=== PATIENT | female | born 1935 | race Caucasian/White ===

== ENCOUNTER 2020-01-08 09:30 | Inpatient (IN) | payer MEDICARE, OTHER, SELFPAY ==
[2020-01-08] VITALS (22 sets, daily range): BP systolic 81–121; BP diastolic 35–69; PULSE 53–86; RESP 14–24; TEMP 36–36.6; O2SAT 77–100; BMI 27.9
--- NOTE | ~2020-01-08 | CT_ITS ---
EXAMINATION: CT abdomen pelvis w con INDICATION: Abdominal pain and diarrhea TECHNIQUE: Computed tomographic images of the abdomen and pelvis were obtained after the administrati on of 100 cc of Omnipaque 350 intravenous contrast. The dose-length product (DLP) was 1092.48 mGy-cm. Automated exposure control and iterative reconstruction technique were employed. COMPARISON: None available FINDINGS: Minimal dependent atelectasis is present in the lung bases. The heart size is normal. There is a large sliding hiatal hernia. The gallbladder is distended and contains multiple stones. The neptali er, spleen, pancreas, and adrenal glands are normal. Cysts of the kidneys measure up to 4 mm on the r ight. There is calcified atherosclerosis of the aorta and many of the other arteries. No pathological ly enlarged abdominal or pelvic lymph nodes are identified. There is no free intraperitoneal gas or e vidence of bowel obstruction. There is liquid stool throughout much of the colon. There are few focal areas of colonic wall thickening. There is wall thickening of the urinary bladder. There is a small hernia of the right lower quadrant containing a short segment of nonobstructed small bowel. Fat conta ining umbilical and left inguinal hernias are noted. There is severe lumbar spondylosis at L5-S1. IMPRESSION: 1. Areas of wall thickening in the colon and liquid stool, suggestive of colitis and diarrhea. 2. Cholelithiasis and gallbladder distention without definite wall thickening or pericholecystic flui d. Correlate for right upper quadrant tenderness. 2. Wall thickening of the urinary bladder, likely cystitis. Reviewed, dictated and finalized at location A. IMPRESSION: 1. Areas of wall thickening in the colon and liquid stool, suggestive of coliti s and diarrhea. 2. Cholelithiasis and gallbladder distention without definite wall thickening o r pericholecystic fluid. Correlate for right upper quadrant tenderness. 2. Wall thickening of the urinary bladder, likely cystitis.
--- NOTE | ~2020-01-08 | XR_ITS ---
XR chest 1V portable 01/09/2020 19:36 Indication: Possible aspiration Procedure: AP portable chest Comparison: 04/27/2018 Findings: Cardiomegaly. No focal air space disease, pulmonary edema, pleural effusion or suspected pn eumothorax. Large hiatal hernia. Impression: 1: No acute cardiopulmonary disease. 2: Large hiatal hernia. Reviewed, dictated and finalized at location A. UCT MANAGEMENT CONSULTANT Impression: 1: No acute cardiopulmonary disease. 2: Large hiatal hernia.
[2020-01-08] MEDS: SODIUM CHLORIDE 0.9% IV 1,000 ML 999 ML IV CONT (09:55)
--- NOTE | 2020-01-08 10:16 | ED.GENADULT ---
HPI - General Adult General Chief complaint: Nausea/Vomiting/Diarrhea Stated complaint: diarrhea for 4 days, blood in stool Time Seen by Provider: 01/08/20 09:35 Source: patient and family History of Present Illness HPI narrative: Patient is 84 y/o female complaining of diarrhea and bloody stool for last 4 days. Her son states that patient has history of stroke and some difficulty with talking at baseline. He states that she has been having 2-3 episode of diarrhea per day. There is no alleviating or exacerbating factor. She also complains of mild abdominal pain. Her son states that she is DNR. Related Data Home Medications Medication Instructions Recorded Confirmed dabigatran etexilate [Pradaxa] mg PO 01/08/20 levetiracetam PO 01/08/20 metoprolol tartrate 01/08/20 olanzapine mg 01/08/20 olanzapine mg 01/08/20 pantoprazole PO 01/08/20 potassium chloride [K-Tab] meq PO 01/08/20 raloxifene mg 01/08/20 sertraline mg 01/08/20 simvastatin mg 01/08/20 Allergies Allergy/AdvReac Type Severity Reaction Status Date / Time Sulfa (Sulfonamide Allergy Unknown Nausea and Verified 01/08/20 11:16 Antibiotics) Vomiting Review of Systems Constitutional: Constitutional: Denies chills, Denies fever(s), Denies headache(s) and Denies weakness Eyes: Eyes: Denies blurry vision ENT: Denies headache(s) and Denies neck pain Cardiovascular: Cardiovascular: Denies chest pain and Denies dyspnea Respiratory: Respiratory: Denies cough and Denies dyspnea Gastrointestinal: Gastrointestinal: Reports abdominal pain, Reports hematochezia, Reports diarrhea, Denies nausea and Denies vomiting Genitourinary: Genitourinary: Denies hematuria and Denies dysuria Musculoskeletal: Musculoskeletal: Denies back pain and Denies neck pain Neurologic: Denies headache(s) and Denies weakness Exam Const: General: no acute distress and well developed Orientation/consciousness: oriented to person, oriented to place, oriented to time and patient oriented x3 HENMT: Head: normocephalic Ears: external ears normal General nose exam: Normal external nose present Eyes: General: appearance normal, both eyes and all related structures Conjunctivae: conjunctivae normal Neck: Neck: normal visual inspection and full ROM Chest: Chest palpation & inspection: normal inspection of the chest and no tenderness Resp: Effort & Inspection: normal respiratory effort Auscultation: clear to auscultation bilaterally Cardio: Rate: regular rate Rhythm: regular rhythm GI: GI Palp: No abdominal tenderness and Yes Soft to palpation Rectal Exam: Abnormal stool present zeb blood and External hemorrhoid(s) present Skin: General skin exam: normal color and turgor normal Neuro: General: oriented to person Cognition (Neuro): abnormal cognition Motor exam (neuro): Other motor observations present (left hemiparesis) Extrem: General: normal to inspection and no pedal edema Other: left arm contracted Psych: Appearance: grossly normal Mental Status: mental status grossly normal Affect: normal affect Course Consultations Consultation #1: Discussed with Dr. Zelaya, who agrees to admit. Date: 01/08/20 Time: 10:50 Consultation #2: Discussed with Dr. Danielson, who agrees to consult. Date: 01/08/20 Time: 11:53 Vital Signs Vital signs: Vital Signs Temperature 36.6 C 01/08/20 09:40 Pulse Rate 64 01/08/20 09:40 Respiratory Rate 16 01/08/20 09:40 Blood Pressure 88/45 L 01/08/20 09:40 Pulse Oximetry 93 01/08/20 09:40 Temperature 36.6 C 01/08/20 09:40 Pulse Rate 64 01/08/20 09:40 Respiratory Rate 16 01/08/20 09:40 Blood Pressure 88/45 L 01/08/20 09:40 Pulse Oximetry 93 01/08/20 09:40 Medical Decision Making Vital Signs Vital Signs: Vital Signs Temperature 36.6 C 01/08/20 09:40 Pulse Rate 64 01/08/20 09:40 Respiratory Rate 16 01/08/20 09:40 Blood Pressure 88/45 L 01/08/20 09:40 Pulse Oximetry 93 01/08/20 09:40
[2020-01-08 10:39] LABS: Basophils Percent Auto 0.5 % (0.2-1.2); Eosinophils Absolute Auto 0.1 K/mm3 (0-0.3); Eosinophils Percent Auto 1.2 % (0-4.4); Immature Granulocyte Absolute 0.02 K/mm3 (0.00-0.031); Immature Granulocyte Percent A 0.5 % (0-0.5); Immature Platelet Fraction Pct 6.5 % (0.9-11.2); Lymphocytes Percent Auto 26.8 % (18.3-44.2); Mean Corpuscular HGB Conc 24.3 g/dl (32-36); Mean Corpuscular Volume 69.9 fl (80-100); Mean Platelet Volume 11.3 fl (7.4-10.4); Monocytes Absolute Auto 0.8 K/mm3 (0.1-0.6); Neutrophils Absolute Auto 2.1 K/mm3 (1.3-6.7); Platelet Count Result 197 k/mm3 (150-375); Red Blood Count 2.89 M/mm3 (4.2-5.4); Red Cell Distribution Width 20.2 % (11.5-14.5); White Blood Count 4.1 K/mm3 (4.5-10.0)
[2020-01-08 10:41] LABS: Hemoglobin 4.9 g/dL (12.0-15.0)
[2020-01-08 10:42] LABS: Hematocrit 20.2 % (37.0-47.0)
[2020-01-08 10:47] LABS: INR 4.2; Prothrombin Time 39.8 Seconds (11.1-14.7)
[2020-01-08 10:48] LABS: Partial Thromboplastin Time 67.8 SECONDS (22.3-36.8)
[2020-01-08 10:50] LABS: Alanine Aminotransferase 10 U/L (4-35); Albumin Level 2.8 g/dL (3.5-5.1); Alkaline Phosphatase 58 U/L (38-126); Anion Gap 5 mmol/L (8-16); Aspartate Amino Transferase 25 U/L (14-36); Bilirubin,Total 0.3 mg/dL (0.2-1.3); Blood Urea Nitrogen 21 mg/dL (7-17); Calcium 7.9 mg/dL (8.4-10.2); Carbon Dioxide 23 mmol/L (22-30); Chloride 114 mmol/L (98-107); Estimated Glomerular Filt Rate 39; Glucose 100 mg/dL (65-105); Potassium 4.1 mmol/L (3.4-5.0); Sodium 142 mmol/L (137-145)
--- NOTE | 2020-01-08 12:46 | PC.NURSE ---
Patient's son reports difficulty swallowing pills.
[2020-01-08] MEDS: CIPROFLOXACIN 400 MG/D5W 200ML 200 ML 200 MG IVPB (12:53)
--- NOTE | 2020-01-08 13:56 | ADMGEN ---
This patient, Rosy Gregorio, was admitted to IMU Room 203-01 at 1350 on01/08/2020. Patient/family oriented to hospital policies and general routines including ID bracelet, bed and alarms, visiting hours, pain management, procedures, bathroom and other care routines, personal items, smoking policy, room service/diet, and visiting hours. Information on how to activate the Rapid Response Team has been discussed. Patient/Family are encouraged to report perceived risks to care and to ask questions if they do not understand what they are told or what they should do.
--- NOTE | 2020-01-08 14:20 | ADMGEN ---
This patient, Rosy Gregorio, was admitted to IMU Room 203-01. Patient/family oriented to hospital policies and general routines including ID bracelet, bed and alarms, visiting hours, pain management, procedures, bathroom and other care routines, personal items, smoking policy, room service/diet, and visiting hours. Information on how to activate the Rapid Response Team has been discussed. Patient/Family are encouraged to report perceived risks to care and to ask questions if they do not understand what they are told or what they should do.
[2020-01-08] MEDS: SODIUM CHLORIDE 0.9% IV 250 ML 30 ML IV CONT (15:28)
[2020-01-08] MEDS: TUBING, BLOOD PLUM PUMP TUBING 1 EACH XX (15:28)
[2020-01-08] MEDS: METOPROLOL TARTRATE INJ 5 MG/5 ML VIAL IV PUSH (18:10)
--- NOTE | 2020-01-08 18:45 | PM.IMHP ---
H&P: HPI History of Present Illness Date/Time: 01/08/20 18:45 Chief complaint: GI Bleed, Acute blood loss anemia Narrative: Rosy Gregorio is a an 84-year-old female with paroxysmal atrial fibrillation long-term anticoagulation, GERD, chronic anemia, chronic kidney disease, seizure disorder, and history of stroke who presented to the emergency department earlier today with reports of diarrhea and blood in stools. 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 For the past 4 days she has had bloody diarrhea, 2 to 3 episodes per day, which her son has attributed to hemorrhoids. Today she began complaining of some mild discomfort in the left lower quadrant. On arrival to the emergency department she was profoundly anemic with a hemoglobin and hematocrit of 4.9 and 20.2% respectively. She continues to have mild, vague abdominal discomfort but has no other complaints at the time my evaluation. She specifically denies fever, chills, sweats, chest pain, shortness of breath, nausea, and vomiting. Review of Systems Review of Systems: Narrative: A review of systems was attempted but very limited given the patient's the underlying aphasia, and she may very well have underlying dementia as well. Except as documented in HPI she stated no to every question asked. 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 Chronic anemia Chronic kidney disease, stage 3 Baseline creatinine is around 1.10. Diastolic dysfunction Echocardiogram in November 2016 showed normal left ventricular size and function with mild concentric LVH and a measured ejection fraction at 60% as well as diastolic dysfunction, severe left atrial enlargement, very large aneurysmal atrial septum with evidence of PFO, and [id number] tricuspid regurgitation. Gastroesophageal reflux disease Hyperlipidemia prison current use of anticoagulant Paroxysmal atrial fibrillation Patent foramen ovale with atrial septal aneurysm On echocardiogram in November 2016. Seizure disorder Urinary incontinence Surgical History Surgical History (Updated 01/08/20 @ 14:34 by Ling Steward PA-C) History of cataract extraction History of mastectomy For treatment of breast cancer. History of skin graft To left upper extremity. History of tonsillectomy Family History Family History Father Acute myocardial infarction Mother Chronic obstructive pulmonary disease Social History Social History (Updated 01/08/20 @ 20:25 by Ling Steward PA-C) Social History: The patient lives in [place] with her son, Renato. 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 She is a lifelong nonsmoker and denies alcohol and illicit substance abuse. Her son is her healthcare power of united [place] attorney and she is listed as a DNR. Spiritual care concerns: No Meds Home Medications and Allergies Home Medications Medication Instructions Recorded Confirmed Type dabigatran etexilate [Pradaxa] 150 mg PO BID 01/08/20 01/08/20 History levetiracetam 500 mg PO BID 01/08/20 01/08/20 History metoprolol tartrate 25 mg PO QID 01/08/20 01/08/20 History olanzapine 5 mg PO DAILY 01/08/20 01/08/20 History pantoprazole 40 mg PO DAILY 01/08/20 01/08/20 History potassium chloride [K-Tab] 10 meq PO DAILY 01/08/20 01/08/20 History raloxifene 60 mg PO DAILY 01/08/20 01/08/20 History sertraline 50 mg PO DAILY 01/08/20 01/08/20 History simvastatin 10 mg PO DAILY 01/08/20 01/08/20 History Allergies Allergy/AdvReac Type Severity Reaction Status Date / Time Sulfa (Sulfonamide Allergy Unknown Nausea and Verified 01/08/20 11:16 Antibiotics) Vomiting Vital Signs Vital Signs - 24
[2020-01-08] MEDS: metroNIDAZOLE 500 MG/ISO 100ML 500 MG/100 ML BAG 100 MG IVPB (19:02)
[2020-01-08] MEDS: PANTOPRAZOLE SODIUM IV 40 MG VIAL IV PUSH (21:05)
[2020-01-08] MEDS: levETIRAcetam 500MG/NACL 100ML 500 MG/100 ML BAG 400 MG IVPB (21:06)
[2020-01-09] VITALS (22 sets, daily range): BP systolic 111–140; BP diastolic 40–66; PULSE 50–84; RESP 16–18; TEMP 36.1–37.3; O2SAT 95–100
[2020-01-09] MEDS: METOPROLOL TARTRATE INJ 5 MG/5 ML VIAL IV PUSH ×4 (01:44→18:53)
[2020-01-09 02:48] LABS: Basophils Percent Auto 0.4 % (0.2-1.2); Eosinophils Absolute Auto 0.1 K/mm3 (0-0.3); Eosinophils Percent Auto 1.8 % (0-4.4); Hematocrit 27.9 % (37.0-47.0); Hemoglobin 8.4 g/dL (12.0-15.0); Immature Granulocyte Absolute 0.09 K/mm3 (0.00-0.031); Immature Granulocyte Percent A 1.6 % (0-0.5); Immature Platelet Fraction Pct 4.1 % (0.9-11.2); Lymphocytes Absolute Auto 1.43 K/mm3 (0.9-3.2); Lymphocytes Percent Auto 25.4 % (18.3-44.2); Mean Corpuscular HGB Conc 30.1 g/dl (32-36); Mean Corpuscular Hemoglobin 23.6 pg (26-34); Mean Corpuscular Volume 78.4 fl (80-100); Mean Platelet Volume 10.8 fl (7.4-10.4); Monocytes Absolute Auto 0.9 K/mm3 (0.1-0.6); Monocytes Percent Auto 15.5 % (2.6-8.5); Neutrophils Absolute Auto 3.1 K/mm3 (1.3-6.7); Neutrophils Percent Auto 55.3 % (45.5-73.1); Platelet Count Result 203 k/mm3 (150-375); Red Blood Count 3.56 M/mm3 (4.2-5.4); Red Cell Distribution Width 25.9 % (11.5-14.5); White Blood Count 5.6 K/mm3 (4.5-10.0)
[2020-01-09 02:59] LABS: Alanine Aminotransferase 10 U/L (4-35); Alkaline Phosphatase 62 U/L (38-126); Anion Gap 7 mmol/L (8-16); Aspartate Amino Transferase 25 U/L (14-36); Bilirubin,Total 0.5 mg/dL (0.2-1.3); Blood Urea Nitrogen 16 mg/dL (7-17); Carbon Dioxide 21 mmol/L (22-30); Chloride 117 mmol/L (98-107); Estimated CRCL calculation 28 ml/min; Estimated Glomerular Filt Rate 39; Glucose 78 mg/dL (65-105); Magnesium 2.1 mg/dL (1.6-2.3); Potassium 3.9 mmol/L (3.4-5.0); Sodium 145 mmol/L (137-145)
--- NOTE | 2020-01-09 02:59 | PC.NURSE ---
Daylight Savings Time For Daylight Savings Time Ending in the Fall - Clocks are moved back. For Daylight Savings Time Beginning in the Spring - Clocks are moved ahead. For [facility], the time of change occurs at 0200 hrs. Time is taken from the banquet server on call. This entry on the patient's chart recognizes the change in time reflected during documentation. Example: 2 entries for vital signs may be charted for 0200 hrs.
[2020-01-09 08:38] LABS: Hematocrit 28.7 % (37.0-47.0); Hemoglobin 8.5 g/dL (12.0-15.0)
[2020-01-09 08:49] LABS: INR 2.3; Prothrombin Time 24.9 Seconds (11.1-14.7)
--- NOTE | 2020-01-09 09:45 | WPDGICN ---
Assessment and Plan Assessment and plan (1) GI bleed: Code(s): K92.2 - Gastrointestinal hemorrhage, unspecified Status: Acute Assessment and Plan: Patient has GI bleeding manifested by black stools today. Bright red blood noted in the emergency room. Large hemorrhoids potentially contribute to some of this but difficult to account for all of bleeding. GI endoscopy and buys. Pradaxa anticoagulation will be held in anticipation of further investigation. (2) Chronic anemia: Code(s): D64.9 - Anemia, unspecified Status: Inactive Assessment and Plan: Patient has chronic ani me a now with a slight decline which may be related GI blood loss will continue to monitor hemoglobin transfuse if necessary. (3) Cerebrovascular accident: Code(s): I63.9 - Cerebral infarction, unspecified Status: Inactive (4) Paroxysmal atrial fibrillation: Code(s): I48.0 - Paroxysmal atrial fibrillation Status: Acute Assessment and Plan: Patient on long-term Pradaxa anticoagulation for atrial fibrillation this will be held in anticipation of GI endoscopy. (5) jail current use of anticoagulant: Code(s): Z79.01 - jail (current) use of anticoagulants Status: Acute GI Consult Note Consult date/time: 01/09/20 09:45 HPI: Rosy Gregorio is a 84 year old female I am asked to see at the request of the hospitalist service. Patient is noted to plastic bloody stools. For this reason was taken to the emergency room. ER reports bloody red stools however nursing staff reports he has become blackish in nature. She has a past history of CVA and has significant dysarthria. She appears confused and is a poor historian. Old records reflect a history of chronic anemia in the past. She does have a past history of atrial fibrillation is on chronic anticoagulation with an elevated INR at the time of presentation. 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 Chronic anemia Chronic kidney disease, stage 3 Baseline creatinine is around 1.10. Diastolic dysfunction Echocardiogram in November 2016 showed normal left ventricular size and function with mild concentric LVH and a measured ejection fraction at 60% as well as diastolic dysfunction, severe left atrial enlargement, very large aneurysmal atrial septum with evidence of PFO, and [id number] tricuspid regurgitation. Gastroesophageal reflux disease Hyperlipidemia jail current use of anticoagulant Paroxysmal atrial fibrillation Patent foramen ovale with atrial septal aneurysm On echocardiogram in November 2016. Seizure disorder Urinary incontinence Surgical History Surgical History (Updated 01/08/20 @ 14:34 by Lign Steward PA-C) History of cataract extraction History of mastectomy For treatment of breast cancer. History of skin graft To left upper extremity. History of tonsillectomy Family History Family History Father Acute myocardial infarction Mother Chronic obstructive pulmonary disease Social History Social History (Updated 01/08/20 @ 20:25 by Ling Steward PA-C) Social History: The patient lives in [place] with her son, Renato. 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 She is a lifelong nonsmoker and denies alcohol and illicit substance abuse. Her son is her healthcare power of making machine catcher and she is listed as a DNR. Spiritual care concerns: No Meds Home Medications and Allergies Home Medications Medication Instructions Recorded Confirmed Type dabigatran etexilate [Pradaxa] 150 mg PO BID 01/08/20 01/08/20 History levetiracetam 500 mg PO BID 01/08/20 01/08/20 History o
[2020-01-09] MEDS: levETIRAcetam 500MG/NACL 100ML 500 MG/100 ML BAG 400 MG IVPB ×2 (09:51→21:54)
[2020-01-09] MEDS: PANTOPRAZOLE SODIUM IV 40 MG VIAL IV PUSH ×2 (09:51→21:53)
[2020-01-09] MEDS: PEG (High)/E-LYTE SOLN 4,000 ML BTL 4000 ML PO (11:22)
--- NOTE | 2020-01-09 14:13 | PM.IMPN ---
Progress Note: A&P Assessment and Plan (1) GI bleed: Code(s): K92.2 - Gastrointestinal hemorrhage, unspecified Status: Acute Assessment and Plan: -----states the patient has been having black stool but the son states she has also been having bright red blood per rectum recently. She does have large hemorrhoids also shows colitis on the CT. She is on Pradaxa which has been held. Dr. Danielson has been consulted and may do an endoscopy. Continue Zosyn (2) Acute blood loss anemia: Code(s): D62 - Acute posthemorrhagic anemia Status: Acute Assessment and Plan: -----hemoglobin on admission was 4.9 which improved to 8.4 and has been holding steady. She has not had any additional bleeding per rectum according to the family and documents. I will draw H&H later this evening and again around midnight to ensure no further drop. INR much better today 2.3. (3) Colitis: Code(s): K52.9 - Noninfective gastroenteritis and colitis, unspecified Status: Acute Assessment and Plan: -----see above, continue Zosyn (4) Gastroesophageal reflux disease: Code(s): K21.9 - Gastro-esophageal reflux disease without esophagitis Status: Inactive Assessment and Plan: -----continue Protonix (5) [facility] current use of anticoagulant: Code(s): Z79.01 - [facility] (current) use of anticoagulants Status: Acute Assessment and Plan: -----currently on hold (6) Paroxysmal atrial fibrillation: Code(s): I48.0 - Paroxysmal atrial fibrillation Status: Acute Assessment and Plan: -----normal sinus rhythm for me today, anticoagulation on hold. Continue metoprolol (7) Chronic kidney disease, stage 3: Code(s): N18.30 - Chronic kidney disease, stage 3 unspecified Status: Inactive Assessment and Plan: -----at baseline, monitor (8) Diastolic dysfunction: Code(s): I51.89 - Other ill-defined heart diseases Status: Inactive Assessment and Plan: -----appeared euvolemic today, no signs of fluid overload. Monitor (9) Seizure disorder: Code(s): G40.909 - Epilepsy, unspecified, not intractable, without status epilepticus Status: Inactive Assessment and Plan: -----continue Keppra IV Additional Plan CT also shows cholelithiasis with gallbladder distention with wall thickening. The patient has absolutely no pain in this area at this time. Will monitor this I do not think she has acute cholecystitis. Are normal, choledocholithiasis less likely. She also has inflammation of the bladder which I have asked the nurse to get a UA as this was not done overnight. She is on Zosyn so the UA may be falsely negative Time Spent With Patient Time with patient: 25 - 35 minutes Subjective Date/time seen: 01/09/20 14:13 Interval history: Pt is a 84-year-old female here for GI bleed and colitis who was seen today with son at baseline. Patient states she has mild abdominal pain but this has improved since yesterday. The son, who lives with her, says that although she has never been diagnosed with dementia she definitely has memory loss and she is at her baseline currently. Patient answers all questions appropriately. Pt denies vomiting, fevers, chills, constipation, chest pain, or shortness of breath. She states she has not had any more bowel movements Review of Systems Review of Systems: All systems reviewed & are unremarkable except as noted in HPI and below Exam Narrative: Exam Narrative: General: Well developed well nourished patient in NAD HEENT: normocephalic Neck: supple Neuro: Alert and oriented x to herself, place, and president but not the date CV:RRR on my exam Resp:CTA Abd: Soft, non distended. No pain to palpation. Positive bowel sounds Extremities: No swelling, erythema, or pain to palpation. Objective Data Vital Signs Vital Signs: Vital Sign
[2020-01-09 15:20] LABS: Add Urine Microscopic? YES; Appearance Urine Cloudy (Clear); Bacteria Urine 1+ /hpf; Bilirubin Urine Negative (Negative); Blood Urine 3+ (Negative); Color Urine Yellow (Yellow); Glucose Urine UA Negative (Negative); Ketones Urine Negative (Negative); Leukocyte Esterase Ur 3+ LEU/UL (Negative); Mucus Urine Rare /lpf; Nitrate Urine Negative (Negative); Protein Urine 2+ mg/dL (Negative); RBC Urine 21-50 /hpf (0-2); Squamous Epithelial Cell Urine Many /hpf (Few); Urobilinogen Urine Negative mg/dL (<2.0); WBC Urine >75 /hpf
[2020-01-09 15:21] LABS: Specific Grav Ur 1.032 (1.001-1.035)
[2020-01-09 21:11] LABS: Hematocrit 28.3 % (37.0-47.0); Hemoglobin 8.6 g/dL (12.0-15.0)
[2020-01-10] VITALS (26 sets, daily range): BP systolic 81–141; BP diastolic 46–93; PULSE 58–644; RESP 16–32; TEMP 36–36.7; O2SAT 94–100; BMI 28.5
[2020-01-10] MEDS: METOPROLOL TARTRATE INJ 5 MG/5 ML VIAL IV PUSH ×2 (00:05→05:37)
[2020-01-10 00:09] LABS: Hematocrit 28.7 % (37.0-47.0); Hemoglobin 8.8 g/dL (12.0-15.0)
[2020-01-10 07:28] LABS: Hematocrit 29.9 % (37.0-47.0); Hemoglobin 8.9 g/dL (12.0-15.0); Immature Platelet Fraction Pct 4.4 % (0.9-11.2); Mean Corpuscular HGB Conc 29.8 g/dl (32-36); Mean Corpuscular Hemoglobin 23.3 pg (26-34); Mean Corpuscular Volume 78.3 fl (80-100); Mean Platelet Volume 10.7 fl (7.4-10.4); Platelet Count Result 213 k/mm3 (150-375); Red Blood Count 3.82 M/mm3 (4.2-5.4); White Blood Count 7.3 K/mm3 (4.5-10.0)
[2020-01-10 07:37] LABS: Potassium 3.6 mmol/L (3.4-5.0)
[2020-01-10 07:39] LABS: Anion Gap 9 mmol/L (8-16); Blood Urea Nitrogen 10 mg/dL (7-17); Calcium 8.5 mg/dL (8.4-10.2); Carbon Dioxide 23 mmol/L (22-30); Chloride 112 mmol/L (98-107); Estimated CRCL calculation 30 ml/min; Estimated Glomerular Filt Rate 43; Glucose 89 mg/dL (65-105); Sodium 144 mmol/L (137-145)
--- NOTE | 2020-01-10 09:00 | PC.NURSE ---
To GI lab for procedures via stretcher accompanied by RN
[2020-01-10] MEDS: LACTATED RINGERS 1,000 ML 150 ML IV CONT (09:18)
--- NOTE | 2020-01-10 09:26 | SUR.PREOP ---
PT ALERT OX1. PLACED ON BEDPAN TO VOID. INC OF URINE. PERICARE DONE.
--- NOTE | 2020-01-10 09:37 | SUR.PREOP ---
0915 PT'S HR 130/MIN SR WITH PACS. DR LATHAM MADE AWARE. HE GAVE THE PATIENT 5MG METOPROLOL IVP FOR ELEVATED HR. CONTINUING TO MONITOR PT.
--- NOTE | 2020-01-10 11:18 | SUR.PHASEII ---
1054 Orders to hold one time order of metoprolol due to blood pressure 88/[address] Calvert.
[2020-01-10] MEDS: levETIRAcetam 500MG/NACL 100ML 500 MG/100 ML BAG 400 MG IVPB (11:39)
[2020-01-10] MEDS: METOPROLOL TARTRATE 25 MG TABLET PO ×3 (14:02→20:53)
--- NOTE | 2020-01-10 15:44 | PM.IMPN ---
Progress Note: A&P Assessment and Plan (1) GI bleed: Code(s): K92.2 - Gastrointestinal hemorrhage, unspecified Status: Acute Assessment and Plan: -----states the patient has been having black stool but the son states she has also been having bright red blood per rectum recently. She does have large hemorrhoids also shows colitis on the CT. She is on Pradaxa which has been held. Dr. Danielson did a colonscopy 01/09 which showed hemorrhoids and diverticula which were not actively bleeding but likely the cause of the bleeding previously. Hemoglobin has been stable, will continue to trend (2) Acute blood loss anemia: Code(s): D62 - Acute posthemorrhagic anemia Status: Acute Assessment and Plan: -----hemoglobin on admission was 4.9 which improved to 8.9 and has been holding steady. She has not had any additional bleeding per rectum according to the family and documents. INR better today, will redraw tomorrow (3) Colitis: Code(s): K52.9 - Noninfective gastroenteritis and colitis, unspecified Status: Acute Assessment and Plan: -----will continue Zosyn. The patient has been tachycardic which is likely because she has been off her oral metoprolol although she has been receiving IV. I am going to get some blood cultures, although I suspect these will be negative as she has not had any fevers and no leukocytosis. Continue IV antibiotics at this time (4) Gastroesophageal reflux disease: Code(s): K21.9 - Gastro-esophageal reflux disease without esophagitis Status: Inactive Assessment and Plan: -----continue Protonix (5) cost and risk analysis manager current use of anticoagulant: Code(s): Z79.01 - long-term (current) use of anticoagulants Status: Acute Assessment and Plan: -----currently on hold (6) Paroxysmal atrial fibrillation: Code(s): I48.0 - Paroxysmal atrial fibrillation Status: Acute Assessment and Plan: -----elevated rate, home medications restarted. Hopefully this improves with her home medications. May need an increase in metoprolol if she continues to run high (7) Chronic kidney disease, stage 3: Code(s): N18.30 - Chronic kidney disease, stage 3 unspecified Status: Inactive Assessment and Plan: -----at baseline, monitor (8) Diastolic dysfunction: Code(s): I51.89 - Other ill-defined heart diseases Status: Inactive Assessment and Plan: -----appeared euvolemic today, no signs of fluid overload. Monitor (9) Seizure disorder: Code(s): G40.909 - Epilepsy, unspecified, not intractable, without status epilepticus Status: Inactive Assessment and Plan: -----continue Keppra. (10) UTI (urinary tract infection): Code(s): N39.0 - Urinary tract infection, site not specified Status: Acute Assessment and Plan: -----await urine cx. continue zosyn Additional Plan CT also shows cholelithiasis with gallbladder distention with wall thickening. The patient has absolutely no pain in this area at this time. Will monitor this I do not think she has acute cholecystitis. Liver enzymes Are normal, choledocholithiasis less likely. She also has inflammation of the bladder. UA looks suspicious for UTI will be sent to culture. She is on Zosyn so the urine culture may be falsely negative Subjective Date/time seen: 01/10/20 15:44 Interval history: Pt is a 84-year-old female here for GI bleed and colitis who was seen today with son at bedside. Pt states she feels weird and sore from her colonoscopy but that she is overall doing okay. She is confued but at baseline. Patient states she has mild abdominal pain but is hungry for lunch. The son says that although she has never been diagnosed with dementia she definitely has memory loss and she is at her baseline currently. Patient answers all questions appropriately. Pt denies vomiti
[2020-01-10] MEDS: levETIRAcetam 500 MG TABLET PO (17:45)
[2020-01-11] VITALS (10 sets, daily range): BP systolic 129–142; BP diastolic 58–64; PULSE 46–62; RESP 16–18; TEMP 36.3–36.6; O2SAT 96–100
--- NOTE | 2020-01-11 07:41 | WPDANESPN ---
Anes - Prog Note Post-Op Date/Time: 01/11/20 07:41 Cardiovascular status: normal Respiratory status: normal Airway patency: baseline Mental status: baseline Post-Op hydration status: normal Vital Signs: Last Vital Signs Temp 36.3 C L 01/11/20 07:05 Pulse 46 L 01/11/20 07:05 Resp 18 01/11/20 07:05 BP 136/64 01/11/20 07:05 Pulse Ox 96 01/11/20 07:05 Pain Score (VAS): 0 I/O: Intake & Output 01/10/20 01/10/20 01/11/20 15:59 23:59 07:59 Intake Total 390 350 50 Output Total 300 Balance 390 50 50 Laboratory Tests 01/10/20 06:58 01/10/20 06:58 Microbiology 01/09/20 14:54 Urine Catheterized Urine Culture - Final Post-procedural complaints: none Patient Feedback: Patient satisfied with anesthetic care.
[2020-01-11 08:13] LABS: Basophils Percent Auto 0.5 % (0.2-1.2); Eosinophils Absolute Auto 0.2 K/mm3 (0-0.3); Eosinophils Percent Auto 3.7 % (0-4.4); Hematocrit 28.2 % (37.0-47.0); Hemoglobin 8.3 g/dL (12.0-15.0); Immature Granulocyte Absolute 0.02 K/mm3 (0.00-0.031); Immature Granulocyte Percent A 0.5 % (0-0.5); Immature Platelet Fraction Pct 4.7 % (0.9-11.2); Lymphocytes Absolute Auto 1.23 K/mm3 (0.9-3.2); Lymphocytes Percent Auto 30.1 % (18.3-44.2); Mean Corpuscular HGB Conc 29.4 g/dl (32-36); Mean Corpuscular Hemoglobin 23.1 pg (26-34); Mean Corpuscular Volume 78.3 fl (80-100); Mean Platelet Volume 10.9 fl (7.4-10.4); Monocytes Absolute Auto 0.8 K/mm3 (0.1-0.6); Monocytes Percent Auto 19.1 % (2.6-8.5); Neutrophils Absolute Auto 1.9 K/mm3 (1.3-6.7); Neutrophils Percent Auto 46.1 % (45.5-73.1); Platelet Count Result 183 k/mm3 (150-375); Red Cell Distribution Width 26.5 % (11.5-14.5); White Blood Count 4.1 K/mm3 (4.5-10.0)
[2020-01-11 08:20] LABS: Anion Gap 6 mmol/L (8-16); Blood Urea Nitrogen 10 mg/dL (7-17); Carbon Dioxide 26 mmol/L (22-30); Chloride 111 mmol/L (98-107); Estimated CRCL calculation 31 ml/min; Estimated Glomerular Filt Rate 43; Glucose 89 mg/dL (65-105); INR 1.2; Potassium 3.3 mmol/L (3.4-5.0); Prothrombin Time 15.4 Seconds (11.1-14.7); Sodium 143 mmol/L (137-145)
--- NOTE | 2020-01-11 08:21 | WPDGIPROGNO ---
Progress Note: A&P Additional Plan Patient comfortable at rest. Appears to be at baseline. Tolerating diet. No additional bleeding noted. Physical exam reveals abdomen to be soft nontender with no organomegaly. Labs reveal hemoglobin 8.9 yesterday stable. Today's labs pending. Hemoglobin was 4.9 on presentation. Impression 1. Resolved lower GI bleeding. Appears to have been from diverticular disease. Patient does have very large hemorrhoids with certainly could have contributed to blood loss. 2. Blood loss anemia. Likely aggravated by anticoagulated state. Bleeding has now resolved. Hemoglobin improved. Would recommend follow-up CBC after discharge. 3. Diverticulosis. Most likely etiology for blood loss this is not expected to continue bleeding. Restarting anticoagulation with Pradaxa is okay from my perspective. 4. Large external hemorrhoids. Some evidence for mucosal prolapse. Should bleeding persistent surgical therapy may need to be considered. 5. No evidence for colitis on colonoscopy. Antibiotics are not felt necessary in can be discontinued. Plan is for discharge from my perspective when others agree. High-fiber diet advised. Follow-up CBC in 1 week. Okay to resume Pradaxa if necessary. Subjective Date/time seen: 01/11/20 08:21 Objective Data Vital Signs Vital Signs: Vital Signs - 24 hr 01/10/20 08:42 01/10/20 09:05 01/10/20 09:24 Temperature 98.1 F Pulse Rate 105 H 134 H 100 Respiratory Rate 20 20 Blood Pressure 103/69 114/77 Pulse Oximetry 96 97 01/10/20 09:40 01/10/20 10:34 01/10/20 10:44 Temperature Pulse Rate 114 H 100 114 H Respiratory Rate 20 18 32 H Blood Pressure 124/83 88/46 L 98/64 L Pulse Oximetry 95 100 99 01/10/20 10:54 01/10/20 11:04 01/10/20 11:14 Temperature Pulse Rate 118 H 109 H 109 H Respiratory Rate 31 H 26 H 26 H Blood Pressure 88/66 L 81/67 L 116/67 Pulse Oximetry 97 94 97 01/10/20 12:00 01/10/20 14:02 01/10/20 14:04 Temperature 96.8 F L Pulse Rate 112 H 119 H 103 H Respiratory Rate 20 Blood Pressure 132/64 Pulse Oximetry 96 01/10/20 16:00 01/10/20 16:40 01/10/20 17:44 Temperature 97.1 F L Pulse Rate 103 H 60 67 Respiratory Rate 20 Blood Pressure 117/55 L Pulse Oximetry 100 01/10/20 18:00 01/10/20 20:00 01/10/20 20:53 Temperature 97.1 F L Pulse Rate 89 82 62 Respiratory Rate 16 Blood Pressure 119/52 L Pulse Oximetry 100 01/10/20 22:00 01/11/20 00:00 01/11/20 02:00 Temperature 97.8 F Pulse Rate 60 54 L 54 L Respiratory Rate 16 Blood Pressure 138/58 L Pulse Oximetry 99 01/11/20 04:00 01/11/20 06:00 01/11/20 07:05 Temperature 97.7 F 97.4 F L Pulse Rate 51 L 57 L 46 L Respiratory Rate 16 18 Blood Pressure 129/62 136/64 Pulse Oximetry 100 96 Intake/Output Intake/Output: Intake & Output 01/09/20 01/09/20 01/10/20 01/11/20 00:59 23:59 23:59 23:59 Intake Total 840 50 Output Total 300 Balance 540 50 Meds/Results Medications: Active Medications Generic Name Dose Route Start Last Admin Trade Name Freq PRN Reason Stop Dose Admin Piperacillin Sod/Tazobactam Sod 2.25 gm in 50 mls @ 100 mls/hr 01/09/20 00:00 01/11/20 05:14 Zosyn 2.25 Gm/D5w 50 Ml IVPB 100 mls/hr Q6H MARCY Administration Levetiracetam 500 mg 01/10/20 17:00 01/10/20 17:45 Levetiracetam 500 Mg Tablet PO 500 mg BID MARCY Administration Metoprolol Tartrate 25 mg 01/10/20 13:00 01/10/20 20:53 Metoprolol Tartrate 25 Mg Tablet PO 25 mg QID MARCY Administration Olanzapine 5 mg 01/11/20 09:00 Olanzapine Tab 5 Mg Tablet PO DAILY MARCY Pantoprazole Sodium 40 mg 01/11/20 09:00 Pantoprazole 40 Mg Tablet PO DAILY MARCY Sertraline HCl 50 mg 01/11/20 09:00 Sertraline Hcl 50 Mg Tablet PO DAILY MARCY Simvastatin 10 mg 01/11/20 09:00 Simvastatin 10 Mg Tablet PO DAILY MARCY Radiology Results: ITS Impressions Abdomen
[2020-01-11] MEDS: PANTOPRAZOLE 40 MG TABLET PO (09:20)
[2020-01-11] MEDS: METOPROLOL TARTRATE 25 MG TABLET PO (09:20)
[2020-01-11] MEDS: levETIRAcetam 500 MG TABLET PO (09:20)
[2020-01-11] MEDS: POTASSIUM CHLORIDE 20 MEQ TABLET 40 MEQ PO (09:20)
[2020-01-11] MEDS: SERTRALINE HCL 50 MG TABLET PO (09:20)
[2020-01-11] MEDS: SIMVASTATIN 10 MG TABLET PO (09:20)
--- NOTE | 2020-01-11 14:46 | PM.DS ---
DS: Admitting Diagnosis Admitting Diagnosis Admitting Diagnosis: GI Bleed, Acute blood loss anemia DS: Summary Time Spent with Patient Time attestation: Total time spent providing and/or coordinating discharge services: 35 minutes DS: Data Data Completed and Pending Labs on day of discharge: Labs from last 24 hours 01/11/20 01/11/20 01/11/20 08:01 08:01 08:01 WBC 4.1 L RBC 3.60 L Hgb 8.3 L Hct 28.2 L MCV 78.3 L MCH 23.1 L MCHC 29.4 L RDW 26.5 H Plt Count 183 MPV 10.9 H Immature Gran % (Auto) 0.5 Neut % (Auto) 46.1 Lymph % (Auto) 30.1 [place] % (Auto) 19.1 H Eos % (Auto) 3.7 Baso % (Auto) 0.5 Lymph # (Auto) 1.23 [place] # (Auto) 0.8 H Eos # (Auto) 0.2 Baso # (Auto) 0.0 Abs Immat Gran (auto) 0.02 Absolute Neuts (auto) 1.9 Absolute Nucleated RBC 0.0 Nucleated RBC % 0.0 % Immature Plt Fraction 4.7 PT 15.4 H D INR 1.2 Sodium 143 Potassium 3.3 L Chloride 111 H Carbon Dioxide 26 Anion Gap 6 L BUN 10 Creatinine 1.20 H Estim Creat Clear Calc 31 Estimated GFR 43 L Glucose 89 Calcium 8.0 L Discharge Plan Discharge Attending physician on discharge: Lynda Aguayo Consulting providers: Jose L Danielson Discharging Clinician: Edwige Shrestha Anticipated Discharge Date/Time: 01/11/20 14:33 Patient Disposition: Home, Self-Care Activity: as tolerated Diet: as tolerated and high fiber Discharge Instructions: Call to schedule a hospital follow up appointment with your primary care doctor in 1 to 2 weeks or sooner if bleeding persists. Dr Danielson's contact information is listed below. Repeat blood work in 1 week to check blood counts due to bleeding. It is suspected that the origin of bleeding is diverticulosis, large hemorrhoids with some prolapse can also be contributing. If rectal bleeding from hemorrhoids persists, she may benefit from establishing care with a surgeon for evaluation. Dr Danielson recommends a high-fiber diet. Decrease metoprolol tartrate to only twice daily (around breakfast and bedtime). This dose was decreased due to low heart rates in the hospital. Continue to monitor your symptoms and seek medical care right away if your illness is worsening. Return to ER if you have concerning symptoms including chest pain, feeling like you can't breathe, or persistent fevers > 101F. Patient Instructions: Antibiotic Form, Dabigatran (By mouth), Gastrointestinal Bleeding (GEN), Hemorrhoids (DC), Diverticulosis (DC), High Fiber Diet (DC) Stand Alone Forms: General Discharge Information Follow-up/Referrals: Jose L Danielson MD [Physician] - Leora,Yousif Fairchild MD [Primary Care Provider] - 1 Week Discharge Medications: New metoprolol tartrate 25 mg Tablet 25 mg PO Q12HR 30 Days Qty: 60 RF: 0 Continued levetiracetam 500 mg tablet 500 mg PO BID RF: 0 simvastatin 10 mg tablet 10 mg PO DAILY RF: 0 potassium chloride [K-Tab] 10 mEq tablet extended release 10 meq PO DAILY RF: 0 olanzapine 2.5 mg tablet 5 mg PO DAILY RF: 0 pantoprazole 40 mg tablet,delayed release (DR/EC) 40 mg PO DAILY RF: 0 raloxifene 60 mg tablet 60 mg PO DAILY RF: 0 sertraline 50 mg tablet 50 mg PO DAILY RF: 0 Pradaxa 150 mg capsule 150 mg PO BID RF: 0 Discontinued metoprolol tartrate 25 mg tablet 25 mg PO QID RF: 0 Other Ambulatory Orders: Complete Blood Count with Diff (Routine) Timeframe: 1 Week Location: Determined by Patient Ordered By: Edwige Shrestha Date of admission: 01/08/20 12:07 Primary Care Provider: LeoraYousif Admitting Provider: Kodak Zelaya Attending physician on admission: Edwige Shrestha Condition: Improved Quality VTE Prophylaxis VTE prophylaxis: mechanical ordered
--- NOTE | 2020-01-11 16:46 | PM.DS ---
DS: Admitting Diagnosis Admitting Diagnosis Admitting Diagnosis: GI Bleed, Acute blood loss anemia DS: Discharge Diagnosis Discharge Diagnosis (1) GI bleed: Code(s): K92.2 - Gastrointestinal hemorrhage, unspecified Status: Acute Assessment and Plan: Date of Admission 01/08/20 Date of Discharge/DOS 01/11/20 Ms. Gregorio is an 84yo F with atrial fibrillation and history of prior CVA on long-term anticoagulation with Pradaxa, CHF, and seizure disorder who is primarily bed and wheelchair bound at home presented to the ED for evaluation of bright red blood per rectum. She is known to have large hemorrhoids and CT abdomen/pelvis additionally demonstrated evidence of possible colitis. She was seen by GI and underwent colonoscopy 01/10/20 which demonstrated hemorrhoids and diverticula that were not actively bleeding - no evidence of colitis on scope. She was initially treated with antibiotics for the possible colitis on CT, antibiotics were discontinued after Dr Danielson noted no evidence of colitis on scope. Both are suspected to have contributed to her bleeding while being in anticoagulated state. Hgb was 4.9 on arrival, 8.3 day of discharge after receiving 2 units packed RBC 01/07 on arrival. Her last few bowel movements prior to discharge were nonbloody. She was hemodynamically stable for discharge 01/11/20 with instructions to monitor for further bleeding and follow up with PCP. (2) Acute blood loss anemia: Code(s): D62 - Acute posthemorrhagic anemia Status: Acute Assessment and Plan: Secondary to diverticular bleeding and large hemorrhoids on anticoagulation. Dr Danielson is OK with resuming Pradaxa, resumed at discharge. Follow up CBC 1 week. (3) Colitis: Code(s): K52.9 - Noninfective gastroenteritis and colitis, unspecified Status: Ruled-out Assessment and Plan: Ruled out with colonoscopy, Zosyn discontinued. (4) Gastroesophageal reflux disease: Code(s): K21.9 - Gastro-esophageal reflux disease without esophagitis Status: Chronic Assessment and Plan: Continue PPI. 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 Bleeding resolved and Pradaxa resumed. (6) Paroxysmal atrial fibrillation: Code(s): I48.0 - Paroxysmal atrial fibrillation Status: Chronic Assessment and Plan: Rate controlled at discharge, in fact with sinus bradycardia into 40s bpm. Decreased her home dose of metoprolol tartrate (?QID) to BID. Given her HF she may benefit from switching to succinate, follow up with PCP. (7) Chronic kidney disease, stage 3: Code(s): N18.30 - Chronic kidney disease, stage 3 unspecified Status: Chronic Assessment and Plan: At baseline. (8) Diastolic dysfunction: Code(s): I51.89 - Other ill-defined heart diseases Status: Chronic Assessment and Plan: Appears euvolemic, no evidence of fluid overload. Continue metoprolol. (9) Seizure disorder: Code(s): G40.909 - Epilepsy, unspecified, not intractable, without status epilepticus Status: Chronic Assessment and Plan: No acute issues, continue Keppra. (10) UTI (urinary tract infection): Code(s): N39.0 - Urinary tract infection, site not specified Status: Ruled-out Assessment and Plan: Asymptomatic bacteriuria, urine culture negative and abx discontinued. DS
--- NOTE | 2020-01-21 10:19 | PC.NURSE ---
Blood cx are negative.
== END 2020-01-11 16:09 | disposition home or self-care (01) | DRG 378 ==
LOC: ANHED 12:25 → ANHIMU 16:13
PROVIDERS: Internal Medicine Gastroenterology; Physician Assistant; Admitting Provider Family Medicine; Emergency Provider Emergency Medicine; PCP Family Medicine; Visit Provider Physician Assistant
PROC: 0DJ08ZZ Inspection of Upper Intestinal Tract, Via Natural or Artificial Opening Endoscopic (ICD-10-PCS; CPT 43235; principal; 2020-01-10 10:00)
DX: K57.31 Diverticulosis of large intestine without perforation or abscess with bleeding (principal); D62 Acute posthemorrhagic anemia; I69.354 Hemiplegia and hemiparesis following cerebral infarction affecting left non-dominant side; K64.2 Third degree hemorrhoids; K44.9 Diaphragmatic hernia without obstruction or gangrene; I48.0 Paroxysmal atrial fibrillation; K21.9 Gastro-esophageal reflux disease without esophagitis; N18.30 Chronic kidney disease, stage 3 unspecified; E78.5 Hyperlipidemia, unspecified; R32 Unspecified urinary incontinence; G40.909 Epilepsy, unspecified, not intractable, without status epilepticus; Z66 Do not resuscitate; Z79.01 Long term (current) use of anticoagulants; Z85.3 Personal history of malignant neoplasm of breast; I69.322 Dysarthria following cerebral infarction; Z98.42 Cataract extraction status, left eye; Z98.41 Cataract extraction status, right eye
CPT/HCPCS: 36415; 36430; 71045; 74177; 80048; 80053; 81001; 83735; 85014; 85018; 85025; 85027; 85055; 85610; 85730; 86850; 86900; 86901; 86923; 87040; 87086; 87088; 96360; 96361; 97162; 97166; 99285; A9270; C9113; J0744; J1953; J2543; J2704; J7030; J7050; J7120; P9016; Q9967

== ENCOUNTER 2020-02-05 18:57 | Inpatient (IN) | payer MEDICARE, OTHER, SELFPAY ==
[2020-02-05] VITALS (31 sets, daily range): BP systolic 82–119; BP diastolic 25–99; PULSE 112–163; RESP 17–29; TEMP 36.3–37.3; O2SAT 92–100
--- NOTE | ~2020-02-05 | XR_ITS ---
EXAMINATION: XR abdomen NG/feed tube insert DATE: 02/05/2020 20:30 INDICATION: Nasogastric tube placement. TECHNIQUE: A semierect view of the abdomen was obtained. COMPARISON: CT abdomen and pelvis 01/08/2020 FINDINGS: The lower abdomen is excluded. There are no dilated loops of bowel. The nasogastric tube is coiled in a large hiatal hernia above the diaphragm. IMPRESSION: 1. Nasogastric tube coiled in a large hiatal hernia above the diaphragm. Reviewed, dictated and finalized at location A. T END SOFTWARE DEVELOPER
--- NOTE | ~2020-02-05 | XR_ITS ---
EXAMINATION: XR chest 1V portable DATE: 02/05/2020 20:29 INDICATION: Hemoptysis. Nausea and vomiting. TECHNIQUE: A single frontal view of the chest was obtained. COMPARISON: Chest single view 01/09/2020, CT abdomen and pelvis 01/08/2020 FINDINGS: There is chronic elevation of right hemidiaphragm. There is mild atelectasis in right perih ilar region. No pleural effusion or pneumothorax. The heart size is normal. There is a large hiatal h ernia. The nasogastric tube is coiled in the hiatal hernia above the diaphragm. There are surgical cl ips in right axilla. IMPRESSION: 1. Chronic elevation of right hemidiaphragm with mild atelectasis in right perihilar region. 2. Large hiatal hernia. 3. Nasogastric tube coiled in the hiatal hernia above the diaphragm. Reviewed, dictated and finalized at location A. SOFTWARE TESTER IMPRESSION: 1. Chronic elevation of right hemidiaphragm with mild atelectasis in right miguel hilar region. 2. Large hiatal hernia. 3. Nasogastric tube coiled in the hiatal hernia above the diaphragm.
--- NOTE | ~2020-02-05 | CT_ITS ---
EXAMINATION: CT abdomen pelvis wo con DATE: 02/05/2020 20:44 INDICATION: Generalized abdominal pain. TECHNIQUE: Computed tomography (CT) of the abdomen and pelvis was performed without intravenous contr ast. Automated exposure control and iterative reconstruction technique were employed. The dose-length product was 1001.05 mGy-cm. COMPARISON: CT abdomen and pelvis 01/08/2020 FINDINGS: The visualized portions of the lung bases demonstrate elevation of right hemidiaphragm. The re is mild atelectasis bilaterally. No pleural effusion. The heart size is normal. No pericardial eff usion. There is a large sliding hiatal hernia. The nasogastric tube is coiled in the hiatal hernia ab ove the diaphragm. The liver is normal. There are gallstones in the gallbladder, which is normal in s ize. The spleen, pancreas, adrenal glands, and kidneys are normal. There is no urolithiasis. There is gas in the bladder wall, consistent with emphysematous cystitis. There is diverticulosis of the colo n without evidence of diverticulitis. The appendix is normal. There is a left inguinal hernia contain ing fat. There are no pathologically enlarged lymph nodes. There is no free intraperitoneal fluid. Th ere is a left posterior rectus sheath hernia containing fat. There is a right posterior rectus sheath hernia containing nonobstructed small bowel. Pelvic floor relaxation is noted. There is severe thora columbar spondylosis. There is mild chronic anterior wedging of T12 vertebral body. Lumbar dextroscol iosis and thoracolumbar levoscoliosis are noted. IMPRESSION: 1. Emphysematous cystitis. 2. Large sliding hiatal hernia. The nasogastric tube is coiled in the hiatal hernia above the diaphra gm. 3. Cholelithiasis. 4. Right posterior rectus sheath hernia containing nonobstructed small bowel. Left posterior rectus s keke hernia containing fat. 5. Left inguinal hernia containing fat. Reviewed, dictated and finalized at location A. CTOR QUALITY ASSURANCE IMPRESSION: 1. Emphysematous cystitis. 2. Large sliding hiatal hernia. The nasogastric tube is coiled in the hiatal he rnia above the diaphragm. 3. Cholelithiasis. 4. Right posterior rectus sheath hernia containing nonobstructed small bowel. L eft posterior rectus sheath hernia containing fat. 5. Left inguinal hernia containing fat.
--- NOTE | ~2020-02-05 | XR_ITS ---
EXAMINATION: XR chest 1V portable EXAM DATE: 02/08/2020 06:18 INDICATION: COVID pneumonia. TECHNIQUE: Portable AP frontal chest x-ray was obtained. Comparison is made to prior examination from 02/05/2020. FINDINGS: Small amount of ill-defined bilateral acute airspace disease, atelectasis or infection. Pre viously seen feeding tube has been removed. There is large gastroesophageal hiatal hernia. Colonic i nterposition. Right axillary surgical clips. There is no pneumothorax suspected. There are no pleura l effusions. IMPRESSION: Mild amount of bilateral atelectasis or infection. Reviewed, dictated and finalized at location A. SCRIPT PROGRAMMER
--- NOTE | ~2020-02-05 | XR_ITS ---
XR abdomen NG/feed tube rechec DATE: 02/06/2020 02:50 INDICATION: Nasogastric tube repositioned TECHNIQUE: Portable AP view on 02/06/2020 at 0251 hours COMPARISON: 02/05/2020 KUB for feeding tube FINDINGS: NG tube tip overlies the upper aspect of gastric hiatal hernia, the proximal port in the mi d thoracic esophagus just below the level of the ryan. Nonspecific bowel gas pattern. Status post right mastectomy and right axillary node dissection. IMPRESSION: NG tube in very proximal aspect of gastric hiatal hernia, proximal port in the mid thorac ic esophagus Reviewed, dictated and finalized at [facility]. Reviewed, dictated and finalized at location A. ORATE LAWYER IMPRESSION: NG tube in very proximal aspect of gastric hiatal hernia, proximal port in the mid thoracic esophagus
--- NOTE | ~2020-02-05 | XR_ITS ---
XR abdomen NG/feed tube rechec DATE: 02/05/2020 22:08 INDICATION: NG tube repositioning emergency room. TECHNIQUE: Portable supine AP view on 01/28/2020 at 2208 hours COMPARISON: None FINDINGS: NG tube is positioned within a gastric hiatal hernia in the thorax. IMPRESSION: NG tube within gastric hiatal hernia Reviewed, dictated and finalized at [facility]. Reviewed, dictated and finalized at location A. PATCHER
--- NOTE | 2020-02-05 19:12 | ECG_ITS ---
Measurements Intervals [place] Rate: 145 P: NE: 0 QRS: -23 QRSD: 77 T: 13 QT: 272 QTc: 424 Interpretive Statements ATRIAL FIBRILLATION WITH RAPID VENTRICULAR RESPONSE DELAYED PRECORDIAL R/S TRANSITION BORDERLINE ST ABNORMALITY- INF/HIGH LAT LEADS ABNORMAL ECG Electronically Signed On 02-06-2020 8:01:24 HOME SCHOOL LIAISON OFFICER by Rafael Morrow D.O.
[2020-02-05 19:23] LABS: Basophils Percent Auto 0.2 % (0.2-1.2); Eosinophils Percent Auto 0.2 % (0-4.4); Hematocrit 25.7 % (37.0-47.0); Hemoglobin 7.2 g/dL (12.0-15.0); Immature Granulocyte Absolute 0.12 K/mm3 (0.00-0.031); Immature Granulocyte Percent A 1.1 % (0-0.5); Lymphocytes Absolute Auto 1.09 K/mm3 (0.9-3.2); Lymphocytes Percent Auto 10.3 % (18.3-44.2); Mean Corpuscular Hemoglobin 24.8 pg (26-34); Mean Corpuscular Volume 88.6 fl (80-100); Mean Platelet Volume 10.5 fl (7.4-10.4); Monocytes Absolute Auto 0.7 K/mm3 (0.1-0.6); Monocytes Percent Auto 6.5 % (2.6-8.5); Neutrophils Absolute Auto 8.6 K/mm3 (1.3-6.7); Neutrophils Percent Auto 81.7 % (45.5-73.1); Platelet Count Result 326 k/mm3 (150-375); White Blood Count 10.6 K/mm3 (4.5-10.0)
[2020-02-05 19:37] LABS: Alanine Aminotransferase 13 U/L (4-35); Albumin Level 3.3 g/dL (3.5-5.1); Alkaline Phosphatase 60 U/L (38-126); Anion Gap 11 mmol/L (8-16); Aspartate Amino Transferase 23 U/L (14-36); Bilirubin,Total 0.2 mg/dL (0.2-1.3); Blood Urea Nitrogen 47 mg/dL (7-17); Calcium 8.8 mg/dL (8.4-10.2); Carbon Dioxide 18 mmol/L (22-30); Chloride 116 mmol/L (98-107); Estimated CRCL calculation 11 ml/min; Estimated Glomerular Filt Rate 14; Glucose 150 mg/dL (65-105); INR 3.3; Potassium 4.6 mmol/L (3.4-5.0); Prothrombin Time 33.8 Seconds (11.1-14.7); Sodium 145 mmol/L (137-145)
[2020-02-05 19:38] LABS: Partial Thromboplastin Time 75.1 SECONDS (22.3-36.8)
[2020-02-05 19:41] LABS: Anisocytosis 1+ (NORMAL); Hypochromasia 1+ (NORMAL); Platelet Estimate Adequate (Adequate)
[2020-02-05 19:42] LABS: Ovalocytes 1+ (NORMAL)
[2020-02-05] MEDS: SODIUM CHLORIDE 0.9% IV 1,000 ML 999 ML IV CONT (19:45)
[2020-02-05 19:48] LABS: Troponin I < 0.012 ng/mL (0.000-0.034)
--- NOTE | 2020-02-05 20:14 | PC.NURSE ---
JUANITA fallonayed use of Cetacaine spray for use of NG tube insertion.
--- NOTE | 2020-02-05 21:26 | PC.NURSE ---
NG tube backed up and repositioned. Per EDP Sonia, repeat x-ray to verify placement.
--- NOTE | 2020-02-05 21:46 | ED.GIBLEED ---
HPI - GI Bleed General Chief complaint: GI Bleed Stated complaint: vomiting blood/ hypotensive Time Seen by Provider: 02/05/20 19:16 History of Present Illness HPI Narrative: Patient is a 84-year-old female who presents the emergency department with chief complaint of GI bleed. The patient has history of atrial fibrillation and is on Pradaxa the family has noticed that she has had some black stools she is also had vomiting of bloody type emesis. Patient has prior history of GI bleeds she also may have had exposure to COVID-19. Patient states that she feels generally unwell also notes that feels as though her heart is been beating fast with this as well. Report no trauma. Related Data Home Medications Medication Instructions Recorded Confirmed Pradaxa 150 mg PO BID 01/08/20 01/08/20 levetiracetam 500 mg PO BID 01/08/20 01/08/20 olanzapine 5 mg PO DAILY 01/08/20 01/08/20 pantoprazole 40 mg PO DAILY 01/08/20 01/08/20 potassium chloride [K-Tab] 10 meq PO DAILY 01/08/20 01/08/20 raloxifene 60 mg PO DAILY 01/08/20 01/08/20 simvastatin 10 mg PO DAILY 01/08/20 01/08/20 Allergies Allergy/AdvReac Type Severity Reaction Status Date / Time Sulfa (Sulfonamide Allergy Unknown Nausea and Verified 02/05/20 19:15 Antibiotics) Vomiting Review of Systems Review of Systems: Narrative: CONSTITUTIONAL: Denies fever, chills, or sweats. EYES: Denies visual changes, redness, or discharge. ENT: Denies rhinorrhea, congestion, sore throat, or otalgia. CARDIOVASCULAR: Denies chest pain, palpitations, or edema. RESPIRATORY: Denies cough or dyspnea. GASTROINTESTINAL: Denies abdominal pain, nausea, vomiting, or diarrhea. GENITOURINARY: Denies dysuria or hematuria. SKIN: Denies rash or itching. MUSCULOSKELETAL: Denies back pain, joint pain, or myalgia. NEUROLOGIC: Denies headache, numbness, or weakness. PSYCHIATRIC: Denies anxiety or depression. A 10 system review of systems was completed on the patient and is negative except for what is stated in the HPI. Nursing and ancillary documentation was reviewed. 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 Chronic anemia Chronic kidney disease, stage 3 Baseline creatinine is around 1.10. Diastolic dysfunction Echocardiogram in November 2016 showed normal left ventricular size and function with mild concentric LVH and a measured ejection fraction at 60% as well as diastolic dysfunction, severe left atrial enlargement, very large aneurysmal atrial septum with evidence of PFO, and [id number] tricuspid regurgitation. 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 Seizure disorder Urinary incontinence Surgical History Surgical History History of cataract extraction History of mastectomy For treatment of breast cancer. History of skin graft To left upper extremity. History of tonsillectomy Family History Family History Father Acute myocardial infarction Mother Chronic obstructive pulmonary disease Social History Social History Social History: The patient lives in [place] with her son, Renato. She is retired from working in medical records. She is a lifelong nonsmoker and denies alcohol and illicit substance abuse. Her son is her healthcare power of automatic spooler operator and she is listed as a DNR. Gender identity (if verbalized by the patient): Female Spiritual care concerns: No Exam Narrative: Exam Narrative: GENERAL: Well-appearing, well-nourished, and in no acute distress. HEAD: Normocephalic, at
--- NOTE | 2020-02-05 22:19 | PM.IMHP ---
H&P: HPI History of Present Illness Date/Time: 02/05/20 22:19 Chief complaint: Acute GI bleed, anemia, Narrative: Rosy Gregorio is a 84 year old female with PMHx significant for A. fib, GI bleed, multiple transfusions in the past. Patient was brought to ED due to melena and hematemesis for few days, son is at [facility] side, patient is unable to give any history as she is delirious. Son state that she might have been exposed to Covid as well as one of the family members tested positive for Covid a close relative and he and his were very sick. However can't tell if patient has had any fevers or rigors. Review of Systems Review of Systems: Narrative: Unable to obtain. 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 Chronic anemia Chronic kidney disease, stage 3 Baseline creatinine is around 1.10. Diastolic dysfunction Echocardiogram in November 2016 showed normal left ventricular size and function with mild concentric LVH and a measured ejection fraction at 60% as well as diastolic dysfunction, severe left atrial enlargement, very large aneurysmal atrial septum with evidence of PFO, and [id number] tricuspid regurgitation. Gastroesophageal reflux disease Hyperlipidemia prison current use of anticoagulant Paroxysmal atrial fibrillation Patent foramen ovale with atrial septal aneurysm On echocardiogram in November 2016. Seizure disorder Urinary incontinence Surgical History Surgical History History of cataract extraction History of mastectomy For treatment of breast cancer. History of skin graft To left upper extremity. History of tonsillectomy Family History Family History Father Acute myocardial infarction Mother Chronic obstructive pulmonary disease Social History Social History Social History: The patient lives in [place] with her son, Renato. She is retired from working in medical records. She is a lifelong nonsmoker and denies alcohol and illicit substance abuse. Her son is her healthcare power of traffic law attorney and she is listed as a DNR. Smoking status: Former smoker Alcohol intake: never Substance use: never Gender identity (if verbalized by the patient): Female Spiritual care concerns: No Meds Home Medications and Allergies Home Medications Medication Instructions Recorded Confirmed Type Pradaxa 150 mg PO BID 01/08/20 02/06/20 History levetiracetam 500 mg PO BID 01/08/20 02/06/20 History olanzapine 5 mg PO HS 01/08/20 02/06/20 History pantoprazole 40 mg PO DAILY 01/08/20 02/06/20 History potassium chloride [K-Tab] 10 meq PO DAILY 01/08/20 02/06/20 History raloxifene 60 mg PO DAILY 01/08/20 02/06/20 History simvastatin 10 mg PO DAILY 01/08/20 02/06/20 History metoprolol tartrate 25 mg PO Q12HR 30 Days #60 tablet 01/11/20 02/06/20 Rx Allergies Allergy/AdvReac Type Severity Reaction Status Date / Time Sulfa (Sulfonamide Allergy Unknown Nausea and Verified 02/06/20 02:13 Antibiotics) Vomiting Vital Signs Vital Signs - 24 hr 02/05/20 19:04 02/05/20 19:05 02/05/20 19:14 Temperature 97.4 F L Pulse Rate 112 H 156 H Respiratory Rate 17 Blood Pressure 87/25 L 87/25 L 82/66 L Pulse Oximetry 97 100 02/05/20 19:27 02/05/20 19:28 02/05/20 19:31 Temperature Pulse Rate 143 H 163 H 152 H Respiratory Rate 22 H 23 H 20 Blood Pressure 82/66 L 85/57 L 94/58 L Pulse Oximetry 100 96 02/05/20 19:41 02/05/20 20:01 02/05/20 20:11 Temperature Pulse Rate 152 H 146 H 135 H Respiratory Rate 19 18 17 Blood Pressure 97/81 L 97/65 L 96/37 L Pulse Oximetry 95 94 02/05/20 20:21 02/05/20 20:30 02/05/20 20:31 Temperature P
[2020-02-05 22:54] LABS: Hematocrit 24.3 % (37.0-47.0)
[2020-02-05 22:58] LABS: Hemoglobin 6.8 g/dL (12.0-15.0)
--- NOTE | 2020-02-05 23:21 | PC.NURSE ---
Spoke to Denise in lab, blood still not ready at this time.
[2020-02-05] MEDS: SODIUM CHLORIDE 0.9% IV 250 ML 30 ML IV CONT (23:51)
[2020-02-06] VITALS (28 sets, daily range): BP systolic 85–132; BP diastolic 36–89; PULSE 74–149; RESP 16–24; TEMP 36.4–37.3; O2SAT 95–100; BMI 27.0
--- NOTE | 2020-02-06 01:07 | PC.NURSE ---
NG tube repositioned again. Bloody, thick mucoid output noted after repositioning NG tube. EDP Sonia notified.
--- NOTE | 2020-02-06 01:49 | PC.NURSE ---
This patient, Rosy Gregorio, was admitted to IMU Room 204-01. Patient/family oriented to hospital policies and general routines including ID bracelet, bed and alarms, visiting hours, pain management, procedures, bathroom and other care routines, personal items, smoking policy, room service/diet, and visiting hours. Information on how to activate the Rapid Response Team has been discussed. Patient/Family are encouraged to report perceived risks to care and to ask questions if they do not understand what they are told or what they should do.
[2020-02-06] MEDS: SODIUM CHLORIDE 0.9% IV 1,000 ML 125 ML IV CONT (04:21)
[2020-02-06] MEDS: FUROSEMIDE INJ 40 MG/4 ML VIAL 10 MG IV PUSH (06:45)
--- NOTE | 2020-02-06 11:49 | WPDURCON ---
Assessment and Plan Assessment and plan (1) Emphysematous cystitis: Code(s): N30.80 - Other cystitis without hematuria Status: Acute Additional Plan Etiology most likely from a gas-forming bacteria. Treatment consists of IV antibiotics for which she is on as well as catheter placement. Order has been placed for Mckee catheter. Culture to be obtained although patient now has been on antibiotics already. None the less no further treatment would be needed at this point time and this should resolve with antibiotics. Urology Consult Note HPI Date Seen: 02/06/20 Time Seen: 11:50 Requesting Physician: Ernesto Tariq MD Primary Care Provider: Yousif Hodges, Consult Narrative Reason for consult: emphysematous cystitis on CT scan Narrative: Rosy Gregorio is a 84 year old female who was admitted with confusion and thus is unable to give any sort of history. This is her 2nd admission over the course of a month's time. She was admitted now with the confusion as well as significant anemia with hemoglobin of 6.8. Her creatinine has also bumped up from 1.2 [address] During a [address] scan evaluation she was found to have some emphysematous cystitis. Upper tracts were normal in appearance. No hydronephrosis noted. Urine has not been obtained up to this point. 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 Chronic anemia Chronic kidney disease, stage 3 Baseline creatinine is around 1.10. Diastolic dysfunction Echocardiogram in November 2016 showed normal left ventricular size and function with mild concentric LVH and a measured ejection fraction at 60% as well as diastolic dysfunction, severe left atrial enlargement, very large aneurysmal atrial septum with evidence of PFO, and [id number] tricuspid regurgitation. Gastroesophageal reflux disease Hyperlipidemia correction current use of anticoagulant Paroxysmal atrial fibrillation Patent foramen ovale with atrial septal aneurysm On echocardiogram in November 2016. Seizure disorder Urinary incontinence Surgical History Surgical History History of cataract extraction History of mastectomy For treatment of breast cancer. History of skin graft To left upper extremity. History of tonsillectomy Family History Family History Father Acute myocardial infarction Mother Chronic obstructive pulmonary disease Social History Social History Social History: The [place] her son, Renato. She is retired from working in medical records. She is a lifelong nonsmoker and denies alcohol and illicit substance abuse. Her son is her healthcare power of compliance attorney and she is listed as a DNR. Smoking status: Former smoker Alcohol intake: never Substance use: never Gender identity (if verbalized by the patient): Female Spiritual care concerns: No Meds Home Medications and Allergies Home Medications Medication Instructions Recorded Confirmed Type Pradaxa 150 mg PO BID 01/08/20 02/06/20 History levetiracetam 500 mg PO BID 01/08/20 02/06/20 History olanzapine 5 mg PO HS 01/08/20 02/06/20 History pantoprazole 40 mg PO DAILY 01/08/20 02/06/20 History potassium chloride [K-Tab] 10 meq PO DAILY 01/08/20 02/06/20 History raloxifene 60 mg PO DAILY 01/08/20 02/06/20 History simvastatin 10 mg PO DAILY 01/08/20 02/06/20 History metoprolol tartrate 25 mg PO Q12HR 30 Days #60 tablet 01/11/20 02/06/20 Rx Allergies Allergy/AdvReac Type Severity Reaction Status Date / Time Sulfa (Sulfonamide Allergy Unknown Nausea and Verified
[2020-02-06] MEDS: SODIUM CHLORIDE 0.9% IV 1,000 ML 100 ML IV CONT (12:30)
[2020-02-06 13:01] LABS: Basophils Percent Auto 0.3 % (0.2-1.2); Eosinophils Percent Auto 0.2 % (0-4.4); Hematocrit 32.2 % (37.0-47.0); Hemoglobin 9.7 g/dL (12.0-15.0); Immature Granulocyte Absolute 0.22 K/mm3 (0.00-0.031); Immature Granulocyte Percent A 1.8 % (0-0.5); Lymphocytes Absolute Auto 1.92 K/mm3 (0.9-3.2); Lymphocytes Percent Auto 15.4 % (18.3-44.2); Mean Corpuscular HGB Conc 30.1 g/dl (32-36); Mean Corpuscular Hemoglobin 26.6 pg (26-34); Mean Corpuscular Volume 88.5 fl (80-100); Mean Platelet Volume 10.8 fl (7.4-10.4); Monocytes Absolute Auto 1.1 K/mm3 (0.1-0.6); Monocytes Percent Auto 9.1 % (2.6-8.5); Neutrophils Absolute Auto 9.1 K/mm3 (1.3-6.7); Neutrophils Percent Auto 73.2 % (45.5-73.1); Platelet Count Result 277 k/mm3 (150-375); Red Blood Count 3.64 M/mm3 (4.2-5.4); Red Cell Distribution Width 27.6 % (11.5-14.5); White Blood Count 12.5 K/mm3 (4.5-10.0)
[2020-02-06 13:07] LABS: Albumin Level 3.1 g/dL (3.5-5.1); Anion Gap 8 mmol/L (8-16); Blood Urea Nitrogen 52 mg/dL (7-17); Calcium 8.6 mg/dL (8.4-10.2); Carbon Dioxide 21 mmol/L (22-30); Chloride 120 mmol/L (98-107); Estimated CRCL calculation 13 ml/min; Estimated Glomerular Filt Rate 18; Glucose 97 mg/dL (65-105); Magnesium 1.9 mg/dL (1.6-2.3); Phosphorus 3.2 mg/dL (2.5-4.5); Sodium 149 mmol/L (137-145)
[2020-02-06 13:10] LABS: Add Urine Microscopic? YES; Appearance Urine Turbid (Clear); Bacteria Urine 2+ /hpf; Bilirubin Urine Negative (Negative); Blood Urine 2+ (Negative); Color Urine Yellow (Yellow); Glucose Urine UA Negative (Negative); Ketones Urine Negative (Negative); Leukocyte Esterase Ur 3+ LEU/UL (Negative); Nitrate Urine Negative (Negative); Protein Urine Negative (Negative); Specific Grav Ur 1.011 (1.001-1.035); Squamous Epithelial Cell Urine Moderate /hpf (Few); Urobilinogen Urine Negative mg/dL (<2.0); WBC Clumps Urine Present /HPF; WBC Urine >75 /hpf
[2020-02-06 17:59] LABS: Hematocrit 27.4 % (37.0-47.0); Hemoglobin 8.4 g/dL (12.0-15.0)
--- NOTE | 2020-02-06 18:23 | PM.IMPN ---
Progress Note: A&P Assessment and Plan (1) Hypotension: Code(s): I95.9 - Hypotension, unspecified Status: Acute Assessment and Plan: Blood pressure dropped to 82/66 on admission. Hypotension most likely related to anemia but cannot completely exclude sepsis given her UTI. She was treated with IV fluids and ultimately was transfused. Blood pressure has improved. Her metoprolol was held but will resume this at lower dose as she tolerates. Continue to monitor closely. Rocephin started for UTI. (2) GI bleed: Qualifiers: GI bleed type/associated pathology: unspecified gastrointestinal hemorrhage type Qualified Code(s): K92.2 - Gastrointestinal hemorrhage, unspecified Code(s): K92.2 - Gastrointestinal hemorrhage, unspecified Status: Acute Assessment and Plan: Patient with tarry stools. CT scan showing large sliding hiatal hernia and diverticulosis without evidence of diverticulitis or colitis. She is on Pradaxa chronically. She was here in early January for GI bleed as well. EGD at that time (01/10/20) showing large hiatal hernia and large diverticulum. [place] (01/10/20) showing 3rd degree hemorrhoids and diverticulosis without bleeding. Hgb here dropped to 6.8 and transfusion ordered. BP low as well and fluids started. BP better. Suspect diverticulosis related. Currently NPO. Will consult GI. Follow HH. Okay to stop NG tube. (3) Emphysematous cystitis: Code(s): N30.80 - Other cystitis without hematuria Status: Acute Assessment and Plan: CT scan showing gas in the bladder wall, consistent with emphysematous cystitis. UA ordered and results noted. Urine culture has been ordered as well. Urology consult appreciated. Discussed with urologist. Continue Mckee catheter. Rocephin has been started. Follow up on urine culture results. (4) Acute on chronic anemia: Code(s): D64.9 - Anemia, unspecified Status: Acute Assessment and Plan: Patient has chronic anemia from chart review. Hemoglobin 6.8 on admission related to acute blood loss anemia. Patient has been transfused. Repeat hemoglobin improved to the 8-9 range. Continue to trend hemoglobin for stability. (5) Atrial flutter: Code(s): I48.92 - Unspecified atrial flutter Status: Acute Assessment and Plan: HR good control. BP more stable. Will resume metoprolol at lower dose. Continue tele. Continue to hold anticoagulation (6) Acute on chronic renal failure: Code(s): N17.9 - Acute kidney failure, unspecified; N18.9 - Chronic kidney disease, unspecified Status: Acute Assessment and Plan: Baseline creatinine runs 1.1-1.3 range. Creatinine on admission here was 3.2. Probably ATN from hypotension and anemia. With IV fluids, creatinine has improved today. Continue IV fluids for now. Trend hemoglobin. Transfuse as necessary. Kidneys appear normal on the CT scan so will hold on checking renal ultrasound. Change to D51/2NS given the elevated sodium. (7) Close exposure to 2019-nCoV: Code(s): Z20.828 - Contact with and (suspected) exposure to other viral communicable diseases Status: Acute Assessment and Plan: COVID swab ordered. Isolation until result known. Subjective Date/time seen: 02/06/20 18:23 Interval history: Date of service 02/06/20 84yo female with hx of pAFib, CVA and CKD here for altered mental status and melana. Patient is alert but confused and thus unable to provide hx. Still having tarry stools. Review of Systems Review of Systems: ROS unobtainable: Yes unobtainable due to mental status Exam Narrative: Exam Narrative: AF 98.2 132/65 78 18 98% ra Gen - NARD lying semi-recumbent in bed Chest - few inspiratroy rhonchi, nml RR CV -irregularly-irregular. Telemetry showing atrial flutter with variable rate. Abd - Soft, NT/ND, Positive BS - Mckee secured with cloudy urine in bag
[2020-02-06] MEDS: PANTOPRAZOLE SODIUM IV 40 MG VIAL IV PUSH (22:10)
[2020-02-06] MEDS: levETIRAcetam 500 MG TABLET PO (22:10)
[2020-02-06] MEDS: DEXTROSE 5%/0.45% SOD CHL 1,000 ML 100 ML IV CONT (22:11)
[2020-02-06] MEDS: METOPROLOL TARTRATE 12.5 MG TABLET PO (22:11)
[2020-02-07] VITALS (15 sets, daily range): BP systolic 116–154; BP diastolic 50–78; PULSE 68–104; RESP 18–20; TEMP 36.1–37.2; O2SAT 86–100; BMI 27.0
[2020-02-07 00:55] LABS: Hematocrit 27.1 % (37.0-47.0); Hemoglobin 8.3 g/dL (12.0-15.0)
[2020-02-07 04:58] LABS: Basophils Percent Auto 0.3 % (0.2-1.2); Eosinophils Absolute Auto 0.1 K/mm3 (0-0.3); Eosinophils Percent Auto 1.3 % (0-4.4); Hematocrit 27.9 % (37.0-47.0); Hemoglobin 8.6 g/dL (12.0-15.0); Immature Granulocyte Absolute 0.13 K/mm3 (0.00-0.031); Immature Granulocyte Percent A 1.7 % (0-0.5); Lymphocytes Absolute Auto 1.55 K/mm3 (0.9-3.2); Lymphocytes Percent Auto 19.7 % (18.3-44.2); Mean Corpuscular HGB Conc 30.8 g/dl (32-36); Mean Corpuscular Volume 87.7 fl (80-100); Mean Platelet Volume 10.2 fl (7.4-10.4); Monocytes Absolute Auto 0.8 K/mm3 (0.1-0.6); Monocytes Percent Auto 10.4 % (2.6-8.5); Neutrophils Absolute Auto 5.2 K/mm3 (1.3-6.7); Neutrophils Percent Auto 66.6 % (45.5-73.1); Platelet Count Result 213 k/mm3 (150-375); Red Blood Count 3.18 M/mm3 (4.2-5.4); Red Cell Distribution Width 27.5 % (11.5-14.5); White Blood Count 7.9 K/mm3 (4.5-10.0)
[2020-02-07 05:13] LABS: Alanine Aminotransferase 12 U/L (4-35); Albumin Level 2.8 g/dL (3.5-5.1); Alkaline Phosphatase 49 U/L (38-126); Anion Gap 3 mmol/L (8-16); Aspartate Amino Transferase 29 U/L (14-36); Bilirubin,Total 0.3 mg/dL (0.2-1.3); Blood Urea Nitrogen 46 mg/dL (7-17); Calcium 8.3 mg/dL (8.4-10.2); Carbon Dioxide 20 mmol/L (22-30); Chloride 126 mmol/L (98-107); Estimated CRCL calculation 15 ml/min; Estimated Glomerular Filt Rate 20; Glucose 97 mg/dL (65-105); Potassium 3.9 mmol/L (3.4-5.0); Sodium 149 mmol/L (137-145)
[2020-02-07] MEDS: METOPROLOL TARTRATE 12.5 MG TABLET PO (10:43)
[2020-02-07] MEDS: PANTOPRAZOLE SODIUM IV 40 MG VIAL IV PUSH ×2 (10:43→20:44)
[2020-02-07] MEDS: levETIRAcetam 500 MG TABLET PO ×3 (10:43→20:44)
[2020-02-07] MEDS: SIMVASTATIN 10 MG TABLET PO (10:44)
[2020-02-07] MEDS: DEXTROSE 5%/0.45% SOD CHL 1,000 ML 100 ML IV CONT (10:52)
--- NOTE | 2020-02-07 11:21 | WPDGICN ---
Assessment and Plan Assessment and plan (1) GI bleed: Qualifiers: GI bleed type/associated pathology: unspecified gastrointestinal hemorrhage type Qualified Code(s): K92.2 - Gastrointestinal hemorrhage, unspecified Code(s): K92.2 - Gastrointestinal hemorrhage, unspecified Status: Acute Assessment and Plan: Patient's current GI bleeding consists of dark stools. I suspect this is related to her diverticular disease. She had recent upper and lower endoscopies. Plan is to continue monitor hemoglobin till is stopped at this point I see no benefit in repeating endoscopies. Anticoagulation will need to be held on this patient given her significant blood loss. (2) Acute blood loss anemia: Code(s): D62 - Acute posthemorrhagic anemia Status: Acute Assessment and Plan: Decline in hemoglobin on presentation likely related to recent GI bleeding. She is improved after transfusion. Plan to continue to monitor hemoglobin closely. (3) Diverticulosis: Code(s): K57.90 - Diverticulosis of intestine, part unspecified, without perforation or abscess without bleeding Status: Acute Assessment and Plan: Significant sigmoid colonic diverticulosis appears to be source of recent bleeding. Plan is for conservative management. Repeat endoscopy only if significant active bleeding persists. High-fiber diet advised. Patient should avoid anticoagulation. (4) Acute on chronic renal failure: Code(s): N17.9 - Acute kidney failure, unspecified; N18.9 - Chronic kidney disease, unspecified Status: Acute (5) Paroxysmal atrial fibrillation: Code(s): I48.0 - Paroxysmal atrial fibrillation Status: Chronic Assessment and Plan: Given patient's recurrent GI bleeding anticoagulation should be held this patient. 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 Patient has a history of dementia is unable to give any useful history. She is only oriented perhaps to 1. She was taken to the emergency room because of concern over blood loss. Dark stools were described. There is some question over possible hematemesis. Patient is unable to add any useful history she denies any obvious bleeding. After observation hospital it was determined she may have had melenic stools. Her blood pressure was borderline on presentation with a low hemoglobin. David has a hemoglobin 8.6 after transfusion of 2units of pack cells. No additional bleeding has been described by the nursing service on the floor. Patient's recent history is significant she was admitted the hospital 3 weeks ago with GI blood loss. EGD was unremarkable at that time a duodenal diverticulum was identified. No obvious upper GI source identified. Extensive sigmoid diverticulosis was identified suggesting this was most likely source of blood loss. And very large hemorrhoids with some prolapse was also identified. 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 Chronic anemia Chronic kidney disease, stage 3 Baseline creatinine is around 1.10. Diastolic dysfunction Echocardiogram in November 2016 showed normal left ventricular size and function with mild concentric LVH and a measured ejection fraction at 60% as well as diastolic dysfunction, severe left atrial enlargement, very large aneurysmal atrial se
[2020-02-07 11:58] LABS: SARS-CoV-2 RNA PCR Positive
--- NOTE | 2020-02-07 13:28 | PM.IMPN ---
Progress Note: A&P Assessment and Plan (1) Hypotension: Code(s): I95.9 - Hypotension, unspecified Status: Acute Assessment and Plan: Blood pressure dropped to 82/66 on admission. Hypotension most likely related to anemia but cannot completely exclude sepsis given her UTI. She was treated with IV fluids and ultimately was transfused. Blood pressure has improved. Her metoprolol was held but this was resumed and she is tolerating. Continue to monitor closely. Rocephin started for UTI. Discussed with son and update provided. All questions answered. (2) GI bleed: Qualifiers: GI bleed type/associated pathology: unspecified gastrointestinal hemorrhage type Qualified Code(s): K92.2 - Gastrointestinal hemorrhage, unspecified Code(s): K92.2 - Gastrointestinal hemorrhage, unspecified Status: Acute Assessment and Plan: Patient with tarry stools. CT scan showing large sliding hiatal hernia and diverticulosis without evidence of diverticulitis or colitis. She is on Pradaxa chronically. She was here in early January for GI bleed as well. EGD at that time (01/10/20) showing large hiatal hernia and large diverticulum. [place] (01/10/20) showing 3rd degree hemorrhoids and diverticulosis without bleeding. Hgb here dropped to 6.8 and transfusion ordered. BP low as well and fluids started. BP better. Suspect diverticulosis and/or IH related. Hgb in the 8 range and stable. GI following and appreciate their input. No plans for repeat endoscopy. Currently NPO so will start diet. Follow HH. (3) Emphysematous cystitis: Code(s): N30.80 - Other cystitis without hematuria Status: Acute Assessment and Plan: CT scan showing gas in the bladder wall, consistent with emphysematous cystitis. UA ordered and results noted. Urine culture pending. Urology consult appreciated. Continue Mckee catheter. Continue Rocephin. Follow up on urine culture results. (4) Acute on chronic anemia: Code(s): D64.9 - Anemia, unspecified Status: Acute Assessment and Plan: Patient has chronic anemia from chart review. Hemoglobin 6.8 on admission related to acute blood loss anemia. Patient has been transfused. Repeat hemoglobin stable in the 8 range. Continue to trend hemoglobin for stability. (5) Atrial flutter: Code(s): I48.92 - Unspecified atrial flutter Status: Acute Assessment and Plan: HR good control. Converted back to NSR. Continue metoprolol and will advance to home dose. Continue tele. Continue to hold anticoagulation (6) Acute on chronic renal failure: Code(s): N17.9 - Acute kidney failure, unspecified; N18.9 - Chronic kidney disease, unspecified Status: Acute Assessment and Plan: Baseline creatinine runs 1.1-1.3 range. Creatinine on admission here was 3.2. Probably ATN from hypotension and anemia and/or from UTI. With IV fluids, creatinine has improved to 2.3. Kidneys appear normal on the CT scan so will hold on checking renal ultrasound. Hyperchloremic probably from RTA; UpH 5.0 so able to acidify the urine. Might just need time for this to correct. Continue IV fluids but change to D5W x 1/2L then stop given COVID. (7) COVID-19: Code(s): U07.1 - COVID-19 Status: Acute Assessment and Plan: COVID swab positive. On 2L NC currently. CXR 02/04 showing only mild atelectasis in the RLL. Will continue isolation. Repeat CXR in the morning. No hx of gastric ulcers and currently on PPI. Will start Dexamethasone. (8) DVT prophylaxis: Code(s): Z29.9 - Encounter for prophylactic measures, unspecified Status: Acute Assessment and Plan: SCDs given GI bleed Subjective Date/time seen: 02/07/20 13:28 Interval history: Date of service 02/06 84yo female with hx of pAFib, CVA and CKD here for altered mental status and melana. Patient is alert but confused and thus unab
[2020-02-07 14:48] LABS: Hematocrit 26.5 % (37.0-47.0)
--- NOTE | 2020-02-07 15:33 | PCSTNOTE ---
Please refer to the Bedside Swallow Evaluation in the EMR. Please note, silent aspiration cannot be ruled out at bedside.
[2020-02-07] MEDS: DEXTROSE 5% IN WATER 500 ML 100 ML IV CONT (17:46)
[2020-02-07] MEDS: DEXAMETHASONE SOD PHOS INJ 4 MG/ML VIAL 6 MG IV PUSH (17:46)
[2020-02-07] MEDS: METOPROLOL TARTRATE 25 MG TABLET PO (20:44)
[2020-02-08] VITALS (13 sets, daily range): BP systolic 122–150; BP diastolic 60–73; PULSE 56–86; RESP 16–20; TEMP 36.2–36.8; O2SAT 96–100
[2020-02-08] MEDS: METOPROLOL TARTRATE 25 MG TABLET PO ×2 (09:19→21:28)
[2020-02-08] MEDS: levETIRAcetam 500 MG TABLET PO ×2 (09:19→17:05)
[2020-02-08] MEDS: PANTOPRAZOLE SODIUM IV 40 MG VIAL IV PUSH ×2 (09:20→21:28)
[2020-02-08] MEDS: SIMVASTATIN 10 MG TABLET PO (09:21)
[2020-02-08] MEDS: DEXAMETHASONE SOD PHOS INJ 4 MG/ML VIAL 6 MG IV PUSH (09:21)
--- NOTE | 2020-02-08 09:38 | WPDGIPROGNO ---
Progress Note: A&P Assessment and Plan (1) Diverticulosis: Code(s): K57.90 - Diverticulosis of intestine, part unspecified, without perforation or abscess without bleeding Status: Acute Assessment and Plan: Diverticulosis identified by recent colonoscopy. This is likely etiology for current GI blood loss. Suggest monitoring conservatively. Typically this will stop on its own. Continue to monitor hemoglobin closely. High-fiber diet advised. (2) Acute on chronic anemia: Code(s): D64.9 - Anemia, unspecified Status: Acute Assessment and Plan: Patient has chronic baseline anemia. Decline in hemoglobin likely related to recent GI blood loss. Hemoglobin now stable after transfusion. Continue to monitor while hospitalized. (3) Atrial flutter: Code(s): I48.92 - Unspecified atrial flutter Status: Acute (4) UTI (urinary tract infection): Code(s): N39.0 - Urinary tract infection, site not specified Status: Ruled-out (5) custodial current use of anticoagulant: Code(s): Z79.01 - custodial (current) use of anticoagulants Status: Acute Assessment and Plan: Given patient's recurrent bleeding would suggest holding anticoagulation. Long-term if at all possible. (6) Paroxysmal atrial fibrillation: Code(s): I48.0 - Paroxysmal atrial fibrillation Status: Chronic (7) COVID-19: Code(s): U07.1 - COVID-19 Status: Acute Assessment and Plan: Patient now identified as having COVID infection. Subjective Date/time seen: 02/08/20 09:38 No significant additional bleeding described. Now tolerating diet. Exam Narrative: Exam Narrative: Physical exam abdomen is benign soft nontender. Objective Data Vital Signs Vital Signs: Vital Signs - 24 hr 02/07/20 10:00 02/07/20 10:43 02/07/20 12:00 Temperature 98.9 F Pulse Rate 72 87 96 Respiratory Rate 20 Blood Pressure 123/51 L Pulse Oximetry 92 02/07/20 14:00 02/07/20 16:00 02/07/20 18:00 Temperature 98.5 F Pulse Rate 75 69 84 Respiratory Rate 18 Blood Pressure 132/62 Pulse Oximetry 92 02/07/20 20:00 02/07/20 20:44 02/07/20 22:00 Temperature 96.9 F L Pulse Rate 75 77 68 Respiratory Rate 18 Blood Pressure 116/50 L Pulse Oximetry 100 02/07/20 23:05 02/08/20 00:00 02/08/20 02:00 Temperature 97.4 F L Pulse Rate 70 70 Respiratory Rate 20 Blood Pressure 141/73 H Pulse Oximetry 100 99 02/08/20 04:00 02/08/20 06:00 02/08/20 07:05 Temperature 97.7 F 97.4 F L Pulse Rate 66 61 86 Respiratory Rate 18 20 Blood Pressure 150/64 H 122/72 Pulse Oximetry 98 100 02/08/20 09:19 Temperature Pulse Rate 64 Respiratory Rate Blood Pressure Pulse Oximetry Intake/Output Intake/Output: Intake & Output 02/05/20 02/06/20 02/07/20 02/08/20 23:59 23:59 23:59 23:59 Intake Total 6142 959 0561 Output Total 30 400 1100 450 Balance 970 322 590 -450 Meds/Results Medications: Active Medications Generic Name Dose Route Start Last Admin Trade Name Freq PRN Reason Stop Dose Admin Dexamethasone Sodium Phosphate 6 mg 02/07/20 14:00 02/08/20 09:21 Dexamethasone Sod Phos Inj 4 Mg/Ml Vial IV PUSH 02/16/20 09:01 6 mg DAILY MARCY Administration Ceftriaxone Sodium/Dextrose 1 gm in 50 mls @ 100 mls/hr 02/06/20 09:00 02/08/20 09:21 Rocephin 1 Gm/D5w 50 Ml IVPB 100 mls/hr DAILY MARCY Administration Levetiracetam 500 mg 02/08/20 09:00 02/08/20 09:19 Levetiracetam 500 Mg Tablet PO 500 mg BID MARCY Administration Metoprolol Tartrate 25 mg 02/07/20 21:00 02/08/20 09:19 Metoprolol Tartrate 25 Mg Tablet PO 25 mg Q12HR MARCY Administration Olanzapine 5 mg 02/06/20 21:00 02/07/20 20:44 Olanzapine Tab 5 Mg Tablet PO 5 mg HS MARCY Administration Pantoprazole Sodium 40 mg 02/06/20 21:00 02/08/20 09:20 Pantoprazole Sodium Iv 40 Mg Vial IV PUSH 40 mg Q12HR MARCY Administration
[2020-02-08 09:55] LABS: Hematocrit 26.3 % (37.0-47.0); Mean Corpuscular HGB Conc 30.4 g/dl (32-36); Mean Corpuscular Volume 88.9 fl (80-100); Platelet Count Result 204 k/mm3 (150-375); Red Blood Count 2.96 M/mm3 (4.2-5.4); White Blood Count 4.9 K/mm3 (4.5-10.0)
[2020-02-08 10:10] LABS: Albumin Level 2.8 g/dL (3.5-5.1); Anion Gap 5 mmol/L (8-16); Blood Urea Nitrogen 25 mg/dL (7-17); CRP 1.8 mg/dL (<1.0); Calcium 8.5 mg/dL (8.4-10.2); Carbon Dioxide 21 mmol/L (22-30); Chloride 119 mmol/L (98-107); Estimated CRCL calculation 21 ml/min; Estimated Glomerular Filt Rate 29; Glucose 95 mg/dL (65-105); Lactate Dehydrogenase 751 U/L (313-618); Magnesium 1.6 mg/dL (1.6-2.3); Phosphorus 3.5 mg/dL (2.5-4.5); Potassium 3.6 mmol/L (3.4-5.0); Sodium 145 mmol/L (137-145)
--- NOTE | 2020-02-08 15:29 | PM.IMPN ---
Progress Note: A&P Assessment and Plan (1) Hypotension: Code(s): I95.9 - Hypotension, unspecified Status: Acute Assessment and Plan: Blood pressure dropped to 82/66 on admission. Hypotension most likely related to anemia but cannot completely exclude sepsis given her UTI. She was treated with IV fluids and ultimately was transfused. Blood pressure has improved. Her metoprolol was held but now resumed as she tolerates. Continue to monitor closely. Rocephin started for UTI. (2) GI bleed: Qualifiers: GI bleed type/associated pathology: unspecified gastrointestinal hemorrhage type Qualified Code(s): K92.2 - Gastrointestinal hemorrhage, unspecified Code(s): K92.2 - Gastrointestinal hemorrhage, unspecified Status: Acute Assessment and Plan: Patient with tarry stools. CT scan showing large sliding hiatal hernia and diverticulosis without evidence of diverticulitis or colitis. She is on Pradaxa chronically. She was here in early January for GI bleed as well. EGD at that time (01/10/20) showing large hiatal hernia and large diverticulum. [place] (01/10/20) showing 3rd degree hemorrhoids and diverticulosis without bleeding. Hgb here dropped to 6.8 and transfusion ordered. BP low as well and fluids started. BP better. Suspect diverticulosis related. . 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 UA ordered and results noted. Urine culture has been ordered as well. Urology consult appreciated. Discussed with urologist. Continue Mckee catheter. Rocephin has been started. Urine > 100,000 ecoli sensitive to ceftriaxone (4) Acute on chronic anemia: Code(s): D64.9 - Anemia, unspecified Status: Acute Assessment and Plan: Patient has chronic anemia from chart review. Hemoglobin 6.8 on admission related to acute blood loss anemia. Patient has been transfused. Repeat hemoglobin improved to the 8-9 range. Continue to trend hemoglobin for stability. (5) Atrial flutter: Code(s): I48.92 - Unspecified atrial flutter Status: Acute Assessment and Plan: HR good control. BP more stable. resumed metoprolol at lower dose. Continue tele. Continue to hold anticoagulation (6) Acute on chronic renal failure: Code(s): N17.9 - Acute kidney failure, unspecified; N18.9 - Chronic kidney disease, unspecified Status: Acute Assessment and Plan: Baseline creatinine runs 1.1-1.3 range. Creatinine on admission here was 3.2. Probably ATN from hypotension and anemia. With IV fluids, creatinine has improved to 1.7 today. Trend hemoglobin. Transfuse as necessary. Kidneys appear normal on the CT scan so will hold on checking renal ultrasound. Fluids stopped with covid dx. (7) Close exposure to 2019-nCoV: Code(s): Z20.828 - Contact with and (suspected) exposure to other viral communicable diseases Status: Acute Assessment and Plan: COVID swab + but not hypoxic so no dexamethasone or remdesivir Subjective Date/time seen: 02/08/20 15:29 Interval history: Date of service 02/07 84yo female with hx of pAFib, CVA and CKD here for altered mental status and melana. Patient is alert but confused and thus unable to provide hx. Exam Narrative: Exam Narrative: AF 97.6 122/62 62 20 100% ra Gen - NARD lying semi-recumbent in bed Chest - clear CV - RRR S1/S2. Telemetry showing NSR. Abd - Soft, NT/ND, Positive BS - Mckee secured with clear yellow urine in the bag Ext - No pedal edema Neuro - Alert but confused, left hemiplegia. Skin - warm and dry Objective Data Vital Signs Vital Signs: Vital Signs - 24 hr 02/07/20 16:00 02/07/20 18:00 02/07/20 20:00 Temperature 36.9 C 36.1 C L Pulse Rate 69 84 75 Respi
[2020-02-09] VITALS (7 sets, daily range): BP systolic 112–155; BP diastolic 48–77; PULSE 62–100; RESP 16–20; TEMP 36–37.1; O2SAT 95–100
[2020-02-09] MEDS: DEXAMETHASONE SOD PHOS INJ 4 MG/ML VIAL 6 MG IV PUSH (08:33)
[2020-02-09] MEDS: levETIRAcetam 500 MG TABLET PO ×2 (08:34→17:30)
[2020-02-09] MEDS: METOPROLOL TARTRATE 25 MG TABLET PO ×2 (08:34→21:00)
[2020-02-09] MEDS: SIMVASTATIN 10 MG TABLET PO (08:34)
[2020-02-09] MEDS: PANTOPRAZOLE SODIUM IV 40 MG VIAL IV PUSH ×2 (08:35→21:00)
--- NOTE | 2020-02-09 09:39 | WPDGIPROGNO ---
Progress Note: A&P Assessment and Plan (1) Diverticulosis: Code(s): K57.90 - Diverticulosis of intestine, part unspecified, without perforation or abscess without bleeding Status: Acute Assessment and Plan: Patient identified as having diverticular bleeding on recent colonoscopy. Current bleeding episode likely related to this known diverticular disease. Plan is for conservative therapy. High-fiber diet. Monitor hemoglobin. No additional workup warranted at this time. (2) Paroxysmal atrial fibrillation: Code(s): I48.0 - Paroxysmal atrial fibrillation Status: Chronic Assessment and Plan: Patient has had at least 2 bleeding episodes related anticoagulation. Hopefully anticoagulation can be limited her stopped in this patient. 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 Plan to monitor hemoglobin while hospitalized. Follow-up CBC after discharge in 1 week also advised. (5) UTI (urinary tract infection): Code(s): N39.0 - Urinary tract infection, site not specified Status: Ruled-out (6) COVID-19: Code(s): U07.1 - COVID-19 Status: Acute Subjective Date/time seen: 02/09/20 09:39 No significant additional bleeding noted. No abdominal pain described. Review of Systems Review of Systems: All systems reviewed & are unremarkable except as noted in HPI and below Exam Narrative: Exam Narrative: On physical exam lungs are clear. Abdomen is soft nontender. Bowel sounds are present. No organomegaly evident. Objective Data Vital Signs Vital Signs: Vital Signs - 24 hr 02/08/20 10:00 02/08/20 12:00 02/08/20 14:00 Temperature 98.2 F Pulse Rate 62 63 56 L Respiratory Rate 16 Blood Pressure 122/63 Pulse Oximetry 100 02/08/20 17:15 02/08/20 21:28 02/09/20 00:00 Temperature 97.2 F L 96.8 F L Pulse Rate 66 64 76 Respiratory Rate 20 20 Blood Pressure 144/60 H 147/77 H Pulse Oximetry 100 100 02/09/20 08:00 02/09/20 08:34 Temperature 97.0 F L Pulse Rate 62 76 Respiratory Rate 16 Blood Pressure 143/65 H Pulse Oximetry 99 Intake/Output Intake/Output: Intake & Output 02/06/20 02/07/20 02/08/20 02/09/20 23:59 23:59 23:59 23:59 Intake Total 722 1690 440 240 Output Total 400 1100 900 200 Balance 322 590 -460 40 Meds/Results Medications: Active Medications Generic Name Dose Route Start Last Admin Trade Name Bud PRN Reason Stop Dose Admin Dexamethasone Sodium Phosphate 6 mg 02/07/20 14:00 02/09/20 08:33 Dexamethasone Sod Phos Inj 4 Mg/Ml Vial IV PUSH 02/16/20 09:01 6 mg DAILY MARCY Administration Ceftriaxone Sodium/Dextrose 1 gm in 50 mls @ 100 mls/hr 02/06/20 09:00 02/08/20 09:21 Rocephin 1 Gm/D5w 50 Ml IVPB 100 mls/hr DAILY MARCY Administration Levetiracetam 500 mg 02/08/20 09:00 02/09/20 08:34 Levetiracetam 500 Mg Tablet PO 500 mg BID MARCY Administration Metoprolol Tartrate 25 mg 02/07/20 21:00 02/09/20 08:34 Metoprolol Tartrate 25 Mg Tablet PO 25 mg Q12HR MARCY Administration Olanzapine 5 mg 02/06/20 21:00 02/08/20 21:26 Olanzapine Tab 5 Mg Tablet PO 5 mg HS MARCY Administration Pantoprazole Sodium 40 mg 02/06/20 21:00 02/09/20 08:35 Pantoprazole Sodium Iv 40 Mg Vial IV PUSH 40 mg Q12HR MARCY Administration Simvastatin 10 mg 02/07/20 09:00 02/09/20 08:34 Simvastatin 10 Mg Tablet PO 10 mg DAILY MARCY Administration Radiology Results: ITS Impressions Abdomen/Pelvis CT 02/05/20 20:47 IMPRESSION: 1. Emphysema
[2020-02-09 10:05] LABS: Basophils Percent Auto 0.4 % (0.2-1.2); Eosinophils Absolute Auto 0.1 K/mm3 (0-0.3); Eosinophils Percent Auto 1.1 % (0-4.4); Hemoglobin 9.1 g/dL (12.0-15.0); Immature Granulocyte Absolute 0.09 K/mm3 (0.00-0.031); Immature Granulocyte Percent A 1.3 % (0-0.5); Lymphocytes Absolute Auto 1.18 K/mm3 (0.9-3.2); Lymphocytes Percent Auto 16.5 % (18.3-44.2); Mean Corpuscular HGB Conc 30.3 g/dl (32-36); Mean Corpuscular Hemoglobin 27.2 pg (26-34); Mean Corpuscular Volume 89.6 fl (80-100); Mean Platelet Volume 10.8 fl (7.4-10.4); Monocytes Absolute Auto 0.6 K/mm3 (0.1-0.6); Neutrophils Absolute Auto 5.2 K/mm3 (1.3-6.7); Neutrophils Percent Auto 72.7 % (45.5-73.1); Platelet Count Result 236 k/mm3 (150-375); Red Blood Count 3.35 M/mm3 (4.2-5.4); Red Cell Distribution Width 26.9 % (11.5-14.5); White Blood Count 7.2 K/mm3 (4.5-10.0)
[2020-02-09 10:20] LABS: Anion Gap 6 mmol/L (8-16); Blood Urea Nitrogen 20 mg/dL (7-17); Calcium 8.8 mg/dL (8.4-10.2); Carbon Dioxide 20 mmol/L (22-30); Chloride 118 mmol/L (98-107); Estimated CRCL calculation 23 ml/min; Estimated Glomerular Filt Rate 33; Glucose 84 mg/dL (65-105); Potassium 3.7 mmol/L (3.4-5.0); Sodium 144 mmol/L (137-145)
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
--- NOTE | 2020-02-09 17:22 | PM.IMPN ---
Progress Note: A&P Assessment and Plan (1) Hypotension: Code(s): I95.9 - Hypotension, unspecified Status: Acute Assessment and Plan: Blood pressure dropped to 82/66 on admission. Hypotension most likely related to anemia but cannot completely exclude sepsis given her UTI. She was treated with IV fluids and ultimately was transfused. Blood pressure has improved. Her metoprolol was held but now resumed as she tolerates. Continue to monitor closely. Rocephin started for UTI. (2) GI bleed: Qualifiers: GI bleed type/associated pathology: unspecified gastrointestinal hemorrhage type Qualified Code(s): K92.2 - Gastrointestinal hemorrhage, unspecified Code(s): K92.2 - Gastrointestinal hemorrhage, unspecified Status: Acute Assessment and Plan: Patient with tarry stools. CT scan showing large sliding hiatal hernia and diverticulosis without evidence of diverticulitis or colitis. She is on Pradaxa chronically. She was here in early January for GI bleed as well. EGD at that time (01/10/20) showing large hiatal hernia and large diverticulum. [place] (01/10/20) showing 3rd degree hemorrhoids and diverticulosis without bleeding. Hgb here dropped to 6.8 and transfusion ordered. BP low as well and fluids started. BP better. Suspect diverticulosis related. . 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 UA ordered and results noted. Urine culture has been ordered as well. Urology consult appreciated. Discussed with urologist. Continue Mckee catheter. Rocephin has been started. Urine > 100,000 ecoli sensitive to ceftriaxone D# 4 (4) Acute on chronic anemia: Code(s): D64.9 - Anemia, unspecified Status: Acute Assessment and Plan: Patient has chronic anemia from chart review. Hemoglobin 6.8 on admission related to acute blood loss anemia. Patient has been transfused. Repeat hemoglobin improved to the 8-9 range.(9.1 today) Continue to trend hemoglobin for stability. (5) Atrial flutter: Code(s): I48.92 - Unspecified atrial flutter Status: Acute Assessment and Plan: HR good control. BP more stable. resumed metoprolol at lower dose. Continue tele. Continue to hold anticoagulation (6) Acute on chronic renal failure: Code(s): N17.9 - Acute kidney failure, unspecified; N18.9 - Chronic kidney disease, unspecified Status: Acute Assessment and Plan: Baseline creatinine runs 1.1-1.3 range. Creatinine on admission here was 3.2. Probably ATN from hypotension and anemia. With IV fluids, creatinine has improved to 1.5 today. Trend hemoglobin. Transfuse as necessary. Kidneys appear normal on the CT scan so will hold on checking renal ultrasound. Fluids stopped with covid dx. (7) Close exposure to 2019-nCoV: Code(s): Z20.828 - Contact with and (suspected) exposure to other viral communicable diseases Status: Acute Assessment and Plan: COVID swab + but not hypoxic so no remdesivir, decadron was started but will d/c on d/c Subjective Date/time seen: 02/09/20 17:22 Interval history: Date of service 02/08 84yo female with hx of pAFib, CVA and CKD here for altered mental status and melana. Patient is alert but confused and thus unable to provide hx. Exam Narrative: Exam Narrative: AF 97.6 142/64 62 20 99% ra Gen - NARD lying semi-recumbent in bed Chest - clear CV - RRR S1/S2. Telemetry showing NSR. Abd - Soft, NT/ND, Positive BS - Mckee secured with clear yellow urine in the bag Ext - No pedal edema Neuro - Alert but confused, left hemiplegia. Skin - warm and dry Objective Data Vital Signs Vital Signs: Vital Signs - 24 hr 02/08/20 21:28 02/09/20 00:00 02/09/20 08:00 Temperature 36.
[2020-02-10] VITALS (11 sets, daily range): BP systolic 107–161; BP diastolic 54–83; PULSE 57–88; RESP 16–18; TEMP 36.3–37.2; O2SAT 94–100
[2020-02-10] MEDS: PANTOPRAZOLE SODIUM IV 40 MG VIAL IV PUSH ×2 (09:11→20:35)
[2020-02-10] MEDS: levETIRAcetam 500 MG TABLET PO ×2 (09:11→17:30)
[2020-02-10] MEDS: METOPROLOL TARTRATE 25 MG TABLET PO ×2 (09:11→20:35)
[2020-02-10] MEDS: DEXAMETHASONE SOD PHOS INJ 4 MG/ML VIAL 6 MG IV PUSH (09:11)
[2020-02-10] MEDS: SIMVASTATIN 10 MG TABLET PO (09:12)
[2020-02-10 10:56] LABS: Basophils Percent Auto 0.6 % (0.2-1.2); Eosinophils Absolute Auto 0.1 K/mm3 (0-0.3); Hematocrit 29.9 % (37.0-47.0); Hemoglobin 9.1 g/dL (12.0-15.0); Immature Granulocyte Percent A 1.4 % (0-0.5); Lymphocytes Absolute Auto 0.82 K/mm3 (0.9-3.2); Lymphocytes Percent Auto 11.8 % (18.3-44.2); Mean Corpuscular HGB Conc 30.4 g/dl (32-36); Mean Corpuscular Hemoglobin 27.2 pg (26-34); Mean Corpuscular Volume 89.5 fl (80-100); Mean Platelet Volume 10.3 fl (7.4-10.4); Monocytes Absolute Auto 0.8 K/mm3 (0.1-0.6); Monocytes Percent Auto 11.7 % (2.6-8.5); Neutrophils Absolute Auto 5.1 K/mm3 (1.3-6.7); Neutrophils Percent Auto 73.5 % (45.5-73.1); Platelet Count Result 185 k/mm3 (150-375); Red Blood Count 3.34 M/mm3 (4.2-5.4); Red Cell Distribution Width 26.6 % (11.5-14.5); White Blood Count 6.9 K/mm3 (4.5-10.0)
[2020-02-10 11:09] LABS: Anion Gap 5 mmol/L (8-16); Blood Urea Nitrogen 19 mg/dL (7-17); Calcium 8.6 mg/dL (8.4-10.2); Carbon Dioxide 19 mmol/L (22-30); Chloride 117 mmol/L (98-107); Estimated CRCL calculation 23 ml/min; Estimated Glomerular Filt Rate 33; Glucose 92 mg/dL (65-105); Potassium 3.9 mmol/L (3.4-5.0); Sodium 141 mmol/L (137-145)
--- NOTE | 2020-02-10 11:51 | WPDGICN ---
Assessment and Plan Assessment and plan (1) Diverticulosis: Code(s): K57.90 - Diverticulosis of intestine, part unspecified, without perforation or abscess without bleeding Status: Acute Assessment and Plan: Patient known to have bleeding from diverticular disease. This appears to have stopped. Current hemoglobin satisfactory. Plan to monitor CBC. Conservative treatment at this time. High-fiber diet advised. Given her recurrent bleeding holding anticoagulation for extended time period is prudent. 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 No additional bleeding described. 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 Chronic anemia Chronic kidney disease, stage 3 Baseline creatinine is around 1.10. Diastolic dysfunction Echocardiogram in November 2016 showed normal left ventricular size and function with mild concentric LVH and a measured ejection fraction at 60% as well as diastolic dysfunction, severe left atrial enlargement, very large aneurysmal atrial septum with evidence of PFO, and [id number] tricuspid regurgitation. 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 Seizure disorder Urinary incontinence Surgical History Surgical History History of cataract extraction History of mastectomy For treatment of breast cancer. History of skin graft To left upper extremity. History of tonsillectomy Family History Family History Father Acute myocardial infarction Mother Chronic obstructive pulmonary disease Social History Social History Social History: The patient lives in [place] with her son, Renato. She is retired from working in medical [employer] She is a lifelong nonsmoker and denies alcohol and illicit substance abuse. Her son is her healthcare power of senior trial attorney and she is listed as a DNR. Smoking status: Former smoker Alcohol intake: never Substance use: never Gender identity (if verbalized by the patient): Female Spiritual care concerns: No Meds Home Medications and Allergies Home Medications Medication Instructions Recorded Confirmed Type Pradaxa 150 mg PO BID 01/08/20 02/06/20 History levetiracetam 500 mg PO BID 01/08/20 02/06/20 History olanzapine 5 mg PO HS 01/08/20 02/06/20 History pantoprazole 40 mg PO DAILY 01/08/20 02/06/20 History potassium chloride [K-Tab] 10 meq PO DAILY 01/08/20 02/06/20 History raloxifene 60 mg PO DAILY 01/08/20 02/06/20 History simvastatin 10 mg PO DAILY 01/08/20 02/06/20 History metoprolol tartrate 25 mg PO Q12HR 30 Days #60 tablet 01/11/20 02/06/20 Rx Allergies Allergy/AdvReac Type Severity Reaction Status Date / Time Sulfa (Sulfonamide Allergy Unknown Nausea and Verified 02/06/20 02:13 Antibiotics) Vomiting Vital Signs Vital Signs - 24 hr 02/09/20 12:00 02/09/20 16:00 02/09/20 20:00 Temperature
--- NOTE | 2020-02-10 14:24 | PM.IMPN ---
Progress Note: A&P Assessment and Plan (1) Hypotension: Code(s): I95.9 - Hypotension, unspecified Status: Acute Assessment and Plan: Blood pressure dropped to 82/66 on admission. Hypotension most likely related to anemia but cannot completely exclude sepsis given her UTI. She was treated with IV fluids and ultimately was transfused. Blood pressure has improved. Her metoprolol was held but now resumed as she tolerates. Continue to monitor closely. Rocephin started for UTI( D#5). (2) GI bleed: Qualifiers: GI bleed type/associated pathology: unspecified gastrointestinal hemorrhage type Qualified Code(s): K92.2 - Gastrointestinal hemorrhage, unspecified Code(s): K92.2 - Gastrointestinal hemorrhage, unspecified Status: Acute Assessment and Plan: Patient with tarry stools. CT scan showing large sliding hiatal hernia and diverticulosis without evidence of diverticulitis or colitis. She is on Pradaxa chronically. She was here in early January for GI bleed as well. EGD at that time (01/10/20) showing large hiatal hernia and large diverticulum. [place] (01/10/20) showing 3rd degree hemorrhoids and diverticulosis without bleeding. Hgb here dropped to 6.8 and transfusion ordered. BP low as well and fluids started. BP better. Suspect diverticulosis related. . diet restarted 02/06 hgb now stable (3) Emphysematous cystitis: Code(s): N30.80 - Other cystitis without hematuria Status: Acute Assessment and Plan: CT scan showing gas in the bladder wall, consistent with emphysematous cystitis. UA ordered and results noted. Urine culture has been ordered as well. Urology consult appreciated. Discussed with urologist. Continue Mckee catheter. Rocephin has been started. Urine > 100,000 ecoli sensitive to ceftriaxone D# 5 (4) Acute on chronic anemia: Code(s): D64.9 - Anemia, unspecified Status: Acute Assessment and Plan: Patient has chronic anemia from chart review. Hemoglobin 6.8 on admission related to acute blood loss anemia. Patient has been transfused. Repeat hemoglobin improved to the 8-9 range.(9.1 again today) Continue to trend hemoglobin for stability. (5) Atrial flutter: Code(s): I48.92 - Unspecified atrial flutter Status: Acute Assessment and Plan: HR good control. BP more stable. resumed metoprolol at lower dose. Continue tele. Continue to hold anticoagulation (6) Acute on chronic renal failure: Code(s): N17.9 - Acute kidney failure, unspecified; N18.9 - Chronic kidney disease, unspecified Status: Acute Assessment and Plan: Baseline creatinine runs 1.1-1.3 range. Creatinine on admission here was 3.2. Probably ATN from hypotension and anemia. With IV fluids, creatinine has plateaued to 1.5 today. Trend hemoglobin. Transfuse as necessary. Kidneys appear normal on the CT scan so will hold on checking renal ultrasound. Fluids stopped with covid dx. (7) Close exposure to 2019-nCoV: Code(s): Z20.828 - Contact with and (suspected) exposure to other viral communicable diseases Status: Acute Assessment and Plan: COVID swab + but not hypoxic so no remdesivir, decadron(D#4) was started but will d/c on d/c Subjective Date/time seen: 02/10/20 14:24 Interval history: Date of service 02/09 84yo female with hx of pAFib, CVA and CKD here for altered mental status and melana. Patient is alert but still confused and thus unable to provide hx. Exam Narrative: Exam Narrative: AF 97.6 160/65 58 20 100% ra Gen - NARD lying semi-recumbent in bed Chest - clear CV - RRR S1/S2. Telemetry showing NSR. Abd - Soft, NT/ND, Positive BS - Mkcee secured with clear yellow urine in the bag Ext - No pedal edema Neuro - Alert but confused, left hemiplegia. Skin - warm and dry Objective Data Vital Signs Vital Signs: Vital Signs - 24 hr 02/09/20 16:00 02/09/20
--- NOTE | 2020-02-10 15:23 | PCDIET ---
Nutrition Follow-Up Complete: Inadequate oral intake related to GI bleed as evidenced by NPO status. Patient to meet estimated nutritional needs. Goal: Goal not met. Continue goal. Pt current nutrition is Regular Minced and Moist Level 5 with Enlive BID Nutrition recommendation: agree Last recorded weight is 66.6 kg, down from 67 kg on assessment Bowel Motility: BM+ today Labs Reviewed: Cr 1.5, BUN 19, Hgb/Hct 9.1 29.9 Meds Noted: Dexamethasone, Protonix Additional Notes: Pt with PO intakes of 10, 10, and 40%. Does drink a lot of water per RN. Recommend taking meds with Enlive. Enlive provided BID to help meet needs. Ensure Enlive provides 350kcal, 20g of protein, and 26 essential vitamins and minerals per serving. Recommend assistance with feedings. RN states pt very sleepy and confused. Current diet appropriate. We will continue to monitor PO intake every five days.
[2020-02-11] VITALS (8 sets, daily range): BP systolic 135–143; BP diastolic 57–69; PULSE 62–75; RESP 18–20; TEMP 36.4–36.8; O2SAT 97–100
[2020-02-11 06:31] LABS: Basophils Percent Auto 0.5 % (0.2-1.2); Eosinophils Absolute Auto 0.1 K/mm3 (0-0.3); Eosinophils Percent Auto 0.8 % (0-4.4); Hematocrit 30.3 % (37.0-47.0); Hemoglobin 9.2 g/dL (12.0-15.0); Immature Granulocyte Absolute 0.25 K/mm3 (0.00-0.031); Immature Granulocyte Percent A 3.3 % (0-0.5); Lymphocytes Percent Auto 21.1 % (18.3-44.2); Mean Corpuscular HGB Conc 30.4 g/dl (32-36); Mean Corpuscular Hemoglobin 27.5 pg (26-34); Mean Corpuscular Volume 90.4 fl (80-100); Mean Platelet Volume 10.6 fl (7.4-10.4); Monocytes Absolute Auto 1.2 K/mm3 (0.1-0.6); Monocytes Percent Auto 15.9 % (2.6-8.5); Neutrophils Absolute Auto 4.4 K/mm3 (1.3-6.7); Neutrophils Percent Auto 58.4 % (45.5-73.1); Platelet Count Result 230 k/mm3 (150-375); Red Blood Count 3.35 M/mm3 (4.2-5.4); Red Cell Distribution Width 26.7 % (11.5-14.5); White Blood Count 7.6 K/mm3 (4.5-10.0)
[2020-02-11 06:42] LABS: D Dimer 0.73 ug/mL (<0.48)
[2020-02-11 06:44] LABS: Anion Gap 6 mmol/L (8-16); Blood Urea Nitrogen 23 mg/dL (7-17); CRP 0.6 mg/dL (<1.0); Calcium 8.8 mg/dL (8.4-10.2); Carbon Dioxide 22 mmol/L (22-30); Chloride 115 mmol/L (98-107); Estimated CRCL calculation 23 ml/min; Estimated Glomerular Filt Rate 33; Glucose 92 mg/dL (65-105); Potassium 3.5 mmol/L (3.4-5.0); Sodium 143 mmol/L (137-145)
[2020-02-11] MEDS: DEXAMETHASONE SOD PHOS INJ 4 MG/ML VIAL 6 MG IV PUSH (12:01)
[2020-02-11] MEDS: levETIRAcetam 500 MG TABLET PO ×2 (12:01→18:36)
[2020-02-11] MEDS: PANTOPRAZOLE SODIUM IV 40 MG VIAL IV PUSH ×2 (12:01→20:53)
[2020-02-11] MEDS: METOPROLOL TARTRATE 25 MG TABLET PO ×2 (12:04→20:55)
[2020-02-11] MEDS: SIMVASTATIN 10 MG TABLET PO (12:05)
[2020-02-11] MEDS: POTASSIUM CHLORIDE 20 MEQ TABLET 40 MEQ PO (12:13)
--- NOTE | 2020-02-11 14:07 | PM.IMPN ---
Progress Note: A&P Assessment and Plan (1) Hypotension: Code(s): I95.9 - Hypotension, unspecified Status: Acute Assessment and Plan: Blood pressure dropped to 82/66 on admission. Hypotension most likely related to anemia but cannot completely exclude sepsis given her UTI. She was treated with IV fluids and ultimately was transfused. Blood pressure has improved. Her metoprolol was held but now resumed . Continue to monitor closely. Rocephin started for UTI( D#6). (2) GI bleed: Qualifiers: GI bleed type/associated pathology: unspecified gastrointestinal hemorrhage type Qualified Code(s): K92.2 - Gastrointestinal hemorrhage, unspecified Code(s): K92.2 - Gastrointestinal hemorrhage, unspecified Status: Acute Assessment and Plan: Patient with tarry stools. CT scan showing large sliding hiatal hernia and diverticulosis without evidence of diverticulitis or colitis. She is on Pradaxa chronically. She was here in early January for GI bleed as well. EGD at that time (01/10/20) showing large hiatal hernia and large diverticulum. [place] (01/10/20) showing 3rd degree hemorrhoids and diverticulosis without bleeding. Hgb here dropped to 6.8 and transfusion ordered. BP low as well and fluids started. BP better. Suspect diverticulosis related. . diet restarted 02/06 hgb now stable (3) Emphysematous cystitis: Code(s): N30.80 - Other cystitis without hematuria Status: Acute Assessment and Plan: CT scan showing gas in the bladder wall, consistent with emphysematous cystitis. UA ordered and results noted. Urine culture has been ordered as well. Urology consult appreciated. Discussed with urologist. Continue Mckee catheter and do voiding trial today.. Rocephin has been started. Urine > 100,000 ecoli sensitive to ceftriaxone D# 6 (4) Acute on chronic anemia: Code(s): D64.9 - Anemia, unspecified Status: Acute Assessment and Plan: Patient has chronic anemia from chart review. Hemoglobin 6.8 on admission related to acute blood loss anemia. Patient has been transfused. Repeat hemoglobin improved to the 8-9 range.(9.2 today) Continue to trend hemoglobin for stability. (5) Atrial flutter: Code(s): I48.92 - Unspecified atrial flutter Status: Acute Assessment and Plan: HR good control. BP more stable. resumed metoprolol at lower dose. Continue tele. Continue to hold anticoagulation (6) Acute on chronic renal failure: Code(s): N17.9 - Acute kidney failure, unspecified; N18.9 - Chronic kidney disease, unspecified Status: Acute Assessment and Plan: Baseline creatinine runs 1.1-1.3 range. Creatinine on admission here was 3.2. Probably ATN from hypotension and anemia. With IV fluids, creatinine has plateaued to 1.5 last 3 days. Trend hemoglobin. Transfuse as necessary. Kidneys appear normal on the CT scan so will hold on checking renal ultrasound. Fluids stopped with covid dx. (7) Close exposure to 2019-nCoV: Code(s): Z20.828 - Contact with and (suspected) exposure to other viral communicable diseases Status: Acute Assessment and Plan: COVID swab + but not hypoxic so no remdesivir, decadron(D#5) was started but will d/c on d/c Subjective Date/time seen: 02/11/20 14:07 Interval history: Date of service 02/10 84yo female with hx of pAFib, CVA and CKD here for altered mental status and melana. Patient is alert but still confused and thus unable to provide hx. Exam Narrative: Exam Narrative: AF 97.6 142/60 66 20 97% ra Gen - NARD lying semi-recumbent in bed Chest - clear CV - RRR S1/S2. Telemetry showing NSR. Abd - Soft, NT/ND, Positive BS - Mckee secured with clear yellow urine in the bag Ext - No pedal edema Neuro - Alert but confused, left hemiplegia. Skin - warm and dry Objective Data Vital Signs Vital Signs: Vital Signs - 24 hr 02/10/20 16:0
--- NOTE | 2020-02-11 18:44 | PC.NURSE ---
Mckee catheter discontinued @ 1215. Patient has not yet voided. Bladder scan @ 1840 shows 102cc.
[2020-02-12] VITALS: BP 154/79; PULSE 68; RESP 16; TEMP 36.3; O2SAT 98
[2020-02-12 08:00] VITALS: BP 122/67; PULSE 62; RESP 22; TEMP 36.4; O2SAT 98
[2020-02-12] MEDS: PANTOPRAZOLE SODIUM IV 40 MG VIAL IV PUSH (08:30)
[2020-02-12] MEDS: DEXAMETHASONE SOD PHOS INJ 4 MG/ML VIAL 6 MG IV PUSH (08:30)
[2020-02-12 08:31] VITALS: PULSE 62
[2020-02-12] MEDS: levETIRAcetam 500 MG TABLET PO (08:31)
[2020-02-12] MEDS: METOPROLOL TARTRATE 25 MG TABLET PO (08:31)
[2020-02-12] MEDS: SIMVASTATIN 10 MG TABLET PO (08:31)
--- NOTE | 2020-02-12 11:21 | PC.NURSE ---
call placed to son Renato (POA) to go over discharge paperwork. He stated they would bring clothes for us to change her into then they would transport her home. paperwork was faxed to [facility] as well.
[2020-02-12 12:00] VITALS: BP 127/49; PULSE 69; RESP 20; TEMP 36.4; O2SAT 98
--- NOTE | 2020-02-12 18:05 | PM.DS ---
DS: Admitting Diagnosis Admitting Diagnosis Admitting Diagnosis: Acute GI bleed, anemia, DS: Discharge Diagnosis Discharge Diagnosis (1) Hypotension: Code(s): I95.9 - Hypotension, unspecified Status: Acute Assessment and Plan: Blood pressure dropped to 82/66 on admission. Hypotension most likely related to anemia but cannot completely exclude sepsis given her UTI. She was treated with IV fluids and ultimately was transfused. Blood pressure improved. Her metoprolol was held but resumed . . Rocephin for UTI, completed full 7 days IV (2) GI bleed: Qualifiers: GI bleed type/associated pathology: unspecified gastrointestinal hemorrhage type Qualified Code(s): K92.2 - Gastrointestinal hemorrhage, unspecified Code(s): K92.2 - Gastrointestinal hemorrhage, unspecified Status: Acute Assessment and Plan: Patient with tarry stools. CT scan showing large sliding hiatal hernia and diverticulosis without evidence of diverticulitis or colitis. She is on Pradaxa chronically. She was here in early January for GI bleed as well. EGD at that time (01/10/20) showing large hiatal hernia and large diverticulum. [place] (01/10/20) showing 3rd degree hemorrhoids and diverticulosis without bleeding. Hgb here dropped to 6.8 and transfusion ordered. BP low as well and fluids started. BP better. Suspect diverticulosis related. . diet restarted 02/06 hgb now stable, 9.2 at discharge (3) Emphysematous cystitis: Code(s): N30.80 - Other cystitis without hematuria Status: Acute Assessment and Plan: CT scan showing gas in the bladder wall, consistent with emphysematous cystitis. UA ordered and results noted. Urology felt secondary to infection and recommended leaving [place] initially and discharge today prior to discharge with no difficulty with urination.. Urine > 100,000 ecoli sensitive to ceftriaxone and completed 7 days treatment of IV ceftriaxone (4) Acute on chronic anemia: Code(s): D64.9 - Anemia, unspecified Status: Acute Assessment and Plan: Patient has chronic anemia from chart review. Hemoglobin 6.8 on admission related to acute blood loss anemia. Patient has been transfused. Repeat hemoglobin improved to the 8-9 range.(9.2 last 2 days prior to discharge) (5) Atrial flutter: Code(s): I48.92 - Unspecified atrial flutter Status: Acute Assessment and Plan: HR good control. BP more stable. resumed metoprolol at lower dose. Continue tele. Continue to hold anticoagulation at discharge with 2 separate episodes of GI bleeds requiring transfusion (6) Acute on chronic renal failure: Code(s): N17.9 - Acute kidney failure, unspecified; N18.9 - Chronic kidney disease, unspecified Status: Acute Assessment and Plan: Baseline creatinine runs 1.1-1.3 range. Creatinine on admission here was 3.2. Probably ATN from hypotension and anemia. With IV fluids, creatinine has plateaued to 1.5 last 3 days prior to discharge . Kidneys appear normal on the CT scan so no renal ultrasound was done. (7) Close exposure to 2019-nCoV: Code(s): Z20.828 - Contact with and (suspected) exposure to other viral communicable diseases Status: Acute Assessment and Plan: COVID swab + but not hypoxic so no remdesivir, decadron completed 6 days and none on discharge DS: Summary Hospital Course Hospital Course: 84-year-old demented white female with history of paroxysmal AFib brought to the hospital with GI bleeding. This is the 2nd episode of GI bleeding within the last 2 months. Her last episode no definite site of bleeding could be determined not EGD and colonoscopy and Pradaxa was held. With her AFib years restarted on outpatient and she presented again with bleeding requiring transfusion. Hemoglobin blood pressure stabilized at 9.2. Seen by GI and with recent evaluation none further was under taken a
== END 2020-02-12 13:35 | disposition home health service (06) | DRG 377 ==
LOC: ANHED 22:15 → ANHIMU 02-06 07:14 → ANH3MEDSUR 02-10 11:28 → ANHIMU 02-16 17:35
PROVIDERS: Internal Medicine; Admitting Provider Internal Medicine; Emergency Provider Emergency Medicine; PCP Family Medicine; Visit Provider Internal Medicine
DX: K57.31 Diverticulosis of large intestine without perforation or abscess with bleeding (principal); N17.0 Acute kidney failure with tubular necrosis; U07.1 COVID-19; I48.92 Unspecified atrial flutter; I69.354 Hemiplegia and hemiparesis following cerebral infarction affecting left non-dominant side; D62 Acute posthemorrhagic anemia; I48.20 Chronic atrial fibrillation, unspecified; I69.322 Dysarthria following cerebral infarction; I95.89 Other hypotension; N30.80 Other cystitis without hematuria; N18.30 Chronic kidney disease, stage 3 unspecified; K21.9 Gastro-esophageal reflux disease without esophagitis; B96.20 Unspecified Escherichia coli [E. coli] as the cause of diseases classified elsewhere; R32 Unspecified urinary incontinence; E78.5 Hyperlipidemia, unspecified; G40.909 Epilepsy, unspecified, not intractable, without status epilepticus; I95.9 Hypotension, unspecified; K64.2 Third degree hemorrhoids; Z66 Do not resuscitate; Z79.01 Long term (current) use of anticoagulants; Z98.41 Cataract extraction status, right eye; Z98.42 Cataract extraction status, left eye; Z85.3 Personal history of malignant neoplasm of breast; Z87.891 Personal history of nicotine dependence; Z79.02 Long term (current) use of antithrombotics/antiplatelets
CPT/HCPCS: 36415; 36430; 71045; 74018; 74176; 80048; 80053; 80069; 81001; 82728; 83605; 83615; 83735; 84484; 85014; 85018; 85025; 85027; 85380; 85610; 85730; 86140; 86850; 86880; 86900; 86901; 86902; 86922; 87077; 87086; 87088; 87186; 87635; 92610; 93005; 96360; 97110; 97162; 97165; 97530; 99285; A9270; C9113; C9803; J0696; J1100; J1940; J7030; J7050; J7060; P9016; U0003

== ENCOUNTER 2020-08-14 15:48 | Inpatient (IN) | payer MEDICARE, OTHER, SELFPAY ==
--- NOTE | ~2020-08-14 | XR_ITS ---
EXAMINATION: XR barium swallow modified EXAM DATE: 08/18/2020 09:34 INDICATION: Pt found actively choking . Dysphagia. TECHNIQUE: Modified barium esophagram was performed by speech pathologist with radiologist Dr. Onesimo Wyman present to administered fluoroscopy. Speech pathologist administered barium in varying consis tencies as per speech pathologist documentation. This was recorded on tape. There was total fluorosc opic time of 2.7. The DAP for this procedure was 2.2 Gycm2. A total of 3 images sent to PACS from t he exam. FINDINGS: Oral stage: Reduced labial seal and lingual movement. Pharyngeal phase: Reduced laryngeal elevation and adduction. Laryngeal penetration: Demonstrated, thin liquids. Aspiration: Demonstrated, intermittently. Laryngeal sensitivity: Inconsistent. IMPRESSION: Aspiration demonstrated; Please refer to speech pathologist findings and specific feedi ng recommendations. Reviewed, dictated and finalized at location A. IMPRESSION: Aspiration demonstrated; Please refer to speech pathologist findi ngs and specific feeding recommendations.
--- NOTE | ~2020-08-14 | CT_ITS ---
EXAMINATION: CT brain wo con DATE: 08/14/2020 21:06 INDICATION: Seizure TECHNIQUE: Computed tomography (CT) of the head was performed without intravenous contrast. Sagittal and coronal reconstructions were performed. The mA was adjusted according to patient size. Iterative reconstruction technique was employed. The dose-length product was 605.33 mGy-cm. COMPARISON: head CT dated 04/27/2018 FINDINGS: Large region of encephalomalacia involving the right frontal, temporal, parietal and occipital lobes, the right insula and right basal ganglia consistent with chronic infarct in the vascular distributio n of the right middle cerebral artery and portions of the right anterior cerebral artery. Within this region of encephalomalacia or some chronic dystrophic calcifications. Additional small chronic infar ct involving the right thalamus. There is secondary wallerian degeneration with asymmetric atrophy of the right cerebral peduncle. No acute intracranial hemorrhage, acute infarction or abnormal extra ax ial fluid collection. Unchanged ex vacuo dilation of the right lateral ventricle. Symmetric prominenc e of the sulci and subarachnoid spaces overlying the convexities consistent with moderate age-appropr iate diffuse cerebral volume loss. No mass/mass effect. Changes of bilateral intraocular lens replac ement. The orbits, paranasal sinuses and mastoid air cells are normal. IMPRESSION: 1. No acute intracranial process. 2. Stable appearance of a large region of encephalomalacia involving significant portions of the righ t cerebral hemisphere consistent with chronic infarct. 3. Additional small old infarct of the right thalamus. 4. Age-related changes including moderate diffuse volume loss. Reviewed, dictated and finalized at location A. IMPRESSION: 1. No acute intracranial process. 2. Stable appearance of a large region of encephalomalacia involving significan t portions of the right cerebral hemisphere consistent with chronic infarct. 3. Additional small old infarct of the right thalamus. 4. Age-related changes including moderate diffuse volume loss.
--- NOTE | ~2020-08-14 | XR_ITS ---
EXAMINATION: XR abdomen/kub 1V EXAM DATE: 08/18/2020 02:07 INDICATION: Vomiting. TECHNIQUE: Frontal projection(s) of the abdomen for interpretation. Comparison is made to prior exami nation from 01/27/2020. FINDINGS: There is moderate sliding gastroesophageal hiatal hernia. There is moderate amount of colon ic stool and gas. No small bowel dilation, nonobstructive bowel gas pattern. There are no suspici ous calcifications identified. There is no organomegaly suspected. Mild to moderate lumbar dextros coliosis. IMPRESSION: Moderate-sized hiatal hernia. Moderate stool and gas. Reviewed, dictated and finalized at location A.
--- NOTE | ~2020-08-14 | CT_ITS ---
EXAMINATION: CT abdomen pelvis wo con DATE: 08/14/2020 21:06 INDICATION: Vomiting and diarrhea TECHNIQUE: Computed tomography (CT) of the abdomen and pelvis was performed without intravenous contr ast. Automated exposure control and iterative reconstruction technique were employed. The dose-length product was 997.90 mGy-cm. COMPARISON: 02/05/2020 FINDINGS: Chronic mild elevation of the right hemidiaphragm. Mild bibasilar atelectasis. Mild cardiomegaly. Ath erosclerotic coronary artery calcific lesion. No pericardial or pleural effusion. Moderate to large s liding-type hiatal hernia. Status post right mastectomy. Gallstones in the dependent aspect of the no rmal-appearing gallbladder. No gallbladder wall thickening or pericholecystic inflammatory stranding to suggest acute cholecystitis. Liver, spleen, pancreas, bilateral adrenal glands and kidneys are nor mal. No urolithiasis. Bladder, uterus and bilateral adnexa are unremarkable. There is moderate coloni c diverticulosis with a sigmoid predominance. There is no adjacent inflammatory change to suggest di verticulitis. Appendix is normal. Small fat-containing umbilical and left inguinal hernias. Again see n are small loops of nonobstructed bowel extending into bilateral spigelian hernias. No free intraper itoneal gas or fluid. No pathologically enlarged abdominal or pelvic lymphadenopathy. Pelvic floor re laxation. Mild S-shaped thoracolumbar scoliosis with severe spondylosis. IMPRESSION: 1. No acute intra-abdominal/pelvic process. 2. Moderate to large sliding-type hiatal hernia. 3. Cholelithiasis. 4. Short loops of nonobstructed bowel extending to bilateral spigelian hernias. 5. Moderate diverticulosis. 6. Small fat-containing umbilical and left inguinal hernias. 7. Cardiomegaly. Reviewed, dictated and finalized at location A.
--- NOTE | ~2020-08-14 | XR_ITS ---
EXAMINATION: XR chest 1V portable DATE: 08/18/2020 00:02 INDICATION: Aspiration TECHNIQUE: frontal view of the chest was obtained. COMPARISON: Chest radiograph dated 02/08/2020 FINDINGS: Patient is rotated towards the right. Lung volumes are small particularly on the right where there is chronic mild elevation of the right hemidiaphragm. Gas within a hiatal hernia projecting over the he art. No airspace opacities, pulmonary edema, pleural effusion or pneumothorax. Mild cardiomegaly. Merari gical clips at the right axilla. IMPRESSION: 1. Small lung volumes with chronic elevation of the right hemidiaphragm. No acute cardiopulmonary dis ease. 2. Cardiomegaly. 3. Moderate to large hiatal hernia. Reviewed, dictated and finalized at location A. IMPRESSION: 1. Small lung volumes with chronic elevation of the right hemidiaphragm. No acu te cardiopulmonary disease. 2. Cardiomegaly. 3. Moderate to large hiatal hernia.
[2020-08-14 16:35] VITALS: BP 117/69; PULSE 89; RESP 20; TEMP 36.8; O2SAT 98
[2020-08-14 16:59] LABS: Basophils Percent Auto 0.3 % (0.2-1.2); Eosinophils Percent Auto 0.3 % (0-4.4); Hematocrit 32.2 % (37.0-47.0); Immature Granulocyte Absolute 0.05 K/mm3 (0.00-0.031); Immature Granulocyte Percent A 0.4 % (0-0.5); Lymphocytes Absolute Auto 1.23 K/mm3 (0.9-3.2); Lymphocytes Percent Auto 10.9 % (18.3-44.2); Mean Corpuscular Hemoglobin 20.5 pg (26-34); Mean Corpuscular Volume 73.2 fl (80-100); Mean Platelet Volume 10.3 fl (7.4-10.4); Monocytes Absolute Auto 1.5 K/mm3 (0.1-0.6); Monocytes Percent Auto 13.5 % (2.6-8.5); Neutrophils Absolute Auto 8.5 K/mm3 (1.3-6.7); Neutrophils Percent Auto 74.6 % (45.5-73.1); Nucleated Red Blood Cells Perc 0.2 % (0.0-0.2); Platelet Count Result 345 k/mm3 (150-375); Red Cell Distribution Width 19.5 % (11.5-14.5); White Blood Count 11.3 K/mm3 (4.5-10.0)
[2020-08-14 17:01] LABS: Alanine Aminotransferase 14 U/L (4-35); Albumin Level 4.3 g/dL (3.5-5.1); Alkaline Phosphatase 84 U/L (38-126); Anion Gap 10 mmol/L (8-16); Aspartate Amino Transferase 23 U/L (14-36); Bilirubin,Total 0.3 mg/dL (0.2-1.3); Blood Urea Nitrogen 23 mg/dL (7-17); Calcium 9.3 mg/dL (8.4-10.2); Carbon Dioxide 28 mmol/L (22-30); Chloride 104 mmol/L (98-107); Estimated CRCL calculation 30 ml/min; Estimated Glomerular Filt Rate 43; Glucose 114 mg/dL (65-105); Lipase 61 U/L (23-300); Potassium 3.9 mmol/L (3.4-5.0); Sodium 142 mmol/L (137-145)
[2020-08-14 19:45] VITALS: BP 116/79; PULSE 94; RESP 18; O2SAT 100
[2020-08-14 20:41] VITALS: BP 117/59; PULSE 114; RESP 20; O2SAT 98
--- NOTE | 2020-08-14 20:44 | ECG_ITS ---
Measurements Intervals [place] Rate: 130 P: AK: 0 QRS: -21 QRSD: 83 T: -10 QT: 314 QTc: 463 Interpretive Statements ATRIAL FIBRILLATION WITH RAPID VENTRICULAR RESPONSE VOLTAGE CRITERIA FOR LVH BORDERLINE R WAVE PROGRESSION, ANTERIOR LEADS BORDERLINE T WAVE ABNORMALITY- INFERIOR LEADS BASELINE WANDER- AVR, AVL, AVF ABNORMAL ECG Electronically Signed On 08-14-2020 21:42:38 CDT by Rafael Morrow D.O.
--- NOTE | 2020-08-14 20:53 | ED.GENADULT ---
HPI - General Adult General Chief complaint: Nausea/Vomiting/Diarrhea Stated complaint: n/v/d, possible seizure Time Seen by Provider: 08/14/20 20:21 Source: patient and family Limitations: altered mental status History of Present Illness HPI narrative: Patient is a 85 y/o female brought in by son for vomiting and diarrhea. Son states that she has water diarrhea for 1 week. She was prescribed Lomotil by PCP, but did not help. It uncertain how often she has been having diarrhea because she wears depends. She had 1 episode of vomiting. Her son state states that she has been listing to right side for 1 week and she stares to left side sometimes. Related Data Home Medications Medication Instructions Recorded Confirmed olanzapine 5 mg PO HS 01/08/20 02/06/20 pantoprazole 40 mg PO DAILY 01/08/20 02/06/20 potassium chloride [K-Tab] 10 meq PO DAILY 01/08/20 02/06/20 raloxifene 60 mg PO DAILY 01/08/20 02/06/20 simvastatin 10 mg PO DAILY 01/08/20 02/06/20 Allergies Allergy/AdvReac Type Severity Reaction Status Date / Time Sulfa (Sulfonamide Allergy Unknown Nausea and Verified 08/14/20 21:13 Antibiotics) Vomiting Review of Systems Constitutional: Constitutional: Denies chills, Denies fever(s), Denies headache(s) and Denies weakness Eyes: Eyes: Denies blurry vision ENT: Denies headache(s) and Denies neck pain Cardiovascular: Cardiovascular: Denies chest pain and Denies dyspnea Respiratory: Respiratory: Denies cough and Denies dyspnea Gastrointestinal: Gastrointestinal: Denies abdominal pain, Reports diarrhea, Reports nausea and Reports vomiting Genitourinary: Genitourinary: Denies hematuria and Denies dysuria Musculoskeletal: Musculoskeletal: Denies back pain and Denies neck pain Neurologic: Denies headache(s) and Denies weakness [facility] Past Medical History Medical History Atrial flutter Breast cancer 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 Chronic anemia Chronic kidney disease, stage 3 Baseline creatinine is around 1.10. Diastolic dysfunction Echocardiogram in November 2016 showed normal left ventricular size and function with mild concentric LVH and a measured ejection fraction at 60% as well as diastolic dysfunction, severe left atrial enlargement, very large aneurysmal atrial septum with evidence of PFO, and [id number] tricuspid regurgitation. Gastroesophageal reflux disease Hyperlipidemia [facility] current use of anticoagulant Paroxysmal atrial fibrillation Patent foramen ovale with atrial septal aneurysm On echocardiogram in November 2016. Seizure disorder Urinary incontinence Surgical History Surgical History History of cataract extraction History of mastectomy For treatment of breast cancer. History of skin graft To left upper extremity. History of tonsillectomy Family History Family History Father Acute myocardial infarction Mother Chronic obstructive pulmonary disease Social History Social History Social History: The patient lives in [place] with her son, Renato. She is retired from working in [employer]. She is a lifelong nonsmoker and denies alcohol and illicit substance abuse. Her son is her healthcare power of tax associate attorney and she is listed as a DNR. Smoking status: Former smoker Alcohol intake: never Substance use: never Gender identity (if verbalized by the patient): Female Spiritual care concerns: No Exam Const: General: no acute distress and well developed Orientation/consciousness: oriented to person, oriented to place and confusion HENMT: Head: normocephalic Ears: external ears normal General nose exam: Normal external nose present Eyes: General: appearance normal, both eyes and all related structures Conjunc
[2020-08-14] MEDS: SODIUM CHLORIDE 0.9% IV 1,000 ML 999 ML IV CONT (21:12)
[2020-08-14 21:48] LABS: Bacteria Urine Trace /hpf; WBC Urine >75 /hpf
[2020-08-14 22:16] VITALS: BP 156/89; PULSE 130; RESP 17; O2SAT 96
[2020-08-14 22:16] LABS: Add Urine Microscopic? YES; Appearance Urine Cloudy (Clear); Bilirubin Urine Negative (Negative); Blood Urine 2+ (Negative); Color Urine Yellow (Yellow); Glucose Urine UA Negative (Negative); Ketones Urine Negative (Negative); Leukocyte Esterase Ur 3+ LEU/UL (Negative); Mucus Urine Rare /lpf; Nitrate Urine Negative (Negative); Protein Urine 2+ mg/dL (Negative); Specific Grav Ur 1.015 (1.001-1.035); Squamous Epithelial Cell Urine Few /hpf (Few); Urobilinogen Urine Negative mg/dL (<2.0)
[2020-08-14 22:27] VITALS: BP 156/89; PULSE 138
[2020-08-14 23:00] VITALS: PULSE 140; RESP 22; O2SAT 94
[2020-08-15] VITALS (23 sets, daily range): BP systolic 124–170; BP diastolic 70–100; PULSE 75–158; RESP 12–28; TEMP 36.2–37; O2SAT 96–98; BMI 29.0
--- NOTE | 2020-08-15 01:52 | PC.NURSE ---
This patient, Rosy Gregorio, was admitted to Intensive Care Unit-1. Patient is confused and unable to be oriented to hospital policies and general routines including ID bracelet, bed and alarms, visiting hours, pain management, procedures, bathroom and other care routines, personal items, smoking policy, room service/diet, and visiting hours. Patient/Family are encouraged to report perceived risks to care and to ask questions if they do not understand what they are told or what they should do.
--- NOTE | 2020-08-15 02:22 | PC.NURSE ---
Left message for son Renato to call back to finish admission questions at [phone].
--- NOTE | 2020-08-15 03:21 | PM.IMHP ---
H&P: HPI History of Present Illness Date/Time: 08/15/20 03:21 Chief Complaint: Diarrhea for 3 days Narrative: 85-year-old female with a past medical history of paroxysmal atrial fibrillation, seizure disorder, prior CVA, and chronic anemia who presented to the ER via private vehicle due to diarrhea for 1 week and 2 days of vomiting. Source of information is ER records and past medical records. The patient is only oriented to self. The patient denies having any pain. Her only statement to me is that she wants make sure that I called her . The family reported the ER staff that they thought the patient may be having seizures. They thought she was having seizures because she was leaning over to 1 side like the last time she had had a prior seizure. The patient was awake at the time of my evaluation. She did briefly look in my direction but then would preferentially rolled to the left side and stare at the left wall. The patient has evidently been having diarrhea for 1 week. Diarrhea was watery in nature. She was prescribed Lomotil by her primary care physician that did not help with her symptoms. She is chronically incontinent of urine and stool. She had 1 episode of vomiting. 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 Chronic anemia Chronic kidney disease, stage 3 Baseline creatinine is around 1.10. Dementia Diastolic dysfunction Echocardiogram in November 2016 showed normal left ventricular size and function with mild concentric LVH and a measured ejection fraction at 60% as well as diastolic dysfunction, severe left atrial enlargement, very large aneurysmal atrial septum with evidence of PFO, and [id number] tricuspid regurgitation. Gastroesophageal reflux disease Hyperlipidemia [facility] current use of anticoagulant Paroxysmal atrial fibrillation Patent foramen ovale with atrial septal aneurysm On echocardiogram in November 2016. Seizure disorder Urinary incontinence Surgical History Surgical History (Updated 08/15/20 @ 03:31 by Faviola Salinas DO) Abnormal colonoscopy (01/2020) Diverticulosis without perforation or abscess, large external hemorrhoids grade 3 with stigmata bleeding History of cataract extraction History of esophagogastroduodenoscopy (EGD) (01/2020) Hiatal hernia History of mastectomy For treatment of breast cancer. History of skin graft To left upper extremity. History of tonsillectomy Family History Family History Father Acute myocardial infarction Mother Chronic obstructive pulmonary disease Social History Social History (Updated 08/15/20 @ 03:32 by Faviola Salinas DO) Social History: The patient lives in [place] with her son, Renato. 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 She is a lifelong nonsmoker and denies alcohol and illicit substance abuse. Her son is her healthcare power of trust and estates attorney and she is listed as a DNR. Smoking status: Never smoker Alcohol intake: never Substance use: never Gender identity (if verbalized by the patient): Female Spiritual care concerns: No Meds Home Medications and Allergies Home Medications Medication Instructions Recorded Confirmed Type potassium chloride [K-Tab] 10 meq PO DAILY 01/08/20 08/15/20 History raloxifene 60 mg PO DAILY 01/08/20 08/15/20 History simvastatin 10 mg PO DAILY 01/08/20 08/15/20 History metoprolol tartrate 25 mg PO QID 08/15/20 08/15/20 History olanzapine 5 mg PO HS 08/15/20 08/15/20 History sertraline 50 mg PO DAILY 08/15/20 08/15/20 History Allergies Allergy/AdvReac Type Severity Reaction Status Date / Time Sulfa (Sulfonamide Allergy Unknown Nausea and Verified 08/14/20
[2020-08-15 04:29] LABS: Hematocrit 29.8 % (37.0-47.0); Hemoglobin 8.1 g/dL (12.0-15.0); Mean Corpuscular HGB Conc 27.2 g/dl (32-36); Mean Corpuscular Volume 73.8 fl (80-100); Mean Platelet Volume 10.1 fl (7.4-10.4); Platelet Count Result 299 k/mm3 (150-375); Red Blood Count 4.04 M/mm3 (4.2-5.4); Red Cell Distribution Width 19.1 % (11.5-14.5); White Blood Count 10.1 K/mm3 (4.5-10.0)
[2020-08-15 04:40] LABS: Anion Gap 10 mmol/L (8-16); Blood Urea Nitrogen 20 mg/dL (7-17); Calcium 8.9 mg/dL (8.4-10.2); Carbon Dioxide 25 mmol/L (22-30); Chloride 107 mmol/L (98-107); Estimated CRCL calculation 29 ml/min; Estimated Glomerular Filt Rate 43; Glucose 120 mg/dL (65-105); Magnesium 1.9 mg/dL (1.6-2.3); Potassium 3.5 mmol/L (3.4-5.0); Sodium 142 mmol/L (137-145)
[2020-08-15] MEDS: METOPROLOL TARTRATE 25 MG TABLET PO ×4 (05:05→23:42)
[2020-08-15] MEDS: SERTRALINE HCL 50 MG TABLET PO (08:19)
[2020-08-15] MEDS: RALOXIFENE HCL (*CHEMO) 60 MG TABLET PO (08:19)
[2020-08-15] MEDS: SIMVASTATIN 10 MG TABLET PO (08:19)
[2020-08-15] MEDS: POTASSIUM CHLORIDE 10 MEQ TABLET.ER PO (08:19)
--- NOTE | 2020-08-15 16:57 | PM.IMPN ---
Progress Note: A&P Assessment and Plan (1) Atrial fibrillation with RVR: Code(s): I48.91 - Unspecified atrial fibrillation Status: Acute Assessment and Plan: 08/15/20 16:57 Patient 85-year-old female was brought by the family patient was having diarrhea and vomiting and quite somnolent upon arrival to emergency depart patient was in atrial fibrillation with RVR rate of 138 and started the patient on diltiazem drip, this morning rate is trending down close to 80-90 will stop diltiazem drip and start the patient home does metoprolol 25 mg q.6 will continue to monitor and further recommendation to follow, patient is quite confused with dementia unable to provide any review of symptoms. (2) Bacteriuria with pyuria: Code(s): R82.71 - Bacteriuria; R82.81 - Pyuria Status: Acute Assessment and Plan: Patient started on Rocephin will follow-up on urine culture and sensitivity Additional Plan The patient remains in AFib RVR. Will resume the patient's home q.i.d. metoprolol. The patient's Cardizem drip will be increased to 15 mg an hour. Will repeat electrolyte panel in a.m. Patient has bacteriuria with pyuria this could be why the patient was having nausea vomiting diarrhea. Will treat empirically for possible UTI. Urine cultures are pending. 45 minutes spent in critical care activities. This case had a high probability of a clinically significant, sudden, or life threatening deterioration of this patient's condition which required my full and direct attention, intervention and personal management. Patient has been admitted as observation status. Subjective Date/time seen: 08/15/20 16:57 Patient 85-year-old female was brought by the family patient was having diarrhea and vomiting and quite somnolent upon arrival to emergency depart patient was in atrial fibrillation with RVR rate of 138 and started the patient on diltiazem drip, this morning rate is trending down close to 80-90 will stop diltiazem drip and start the patient home does metoprolol 25 mg q.6 will continue to monitor and further recommendation to follow, patient is quite confused with dementia unable to provide any review of symptoms. Review of Systems Review of Systems: ROS unobtainable: Yes unobtainable due to mental status Exam Narrative: Exam Narrative: Patient is comfortable, NAD HEENT: eyes are clear and none icteric LUNGS:CTA HEART: Irregularly irregular ABD: BS+, Soft and nontender Lower extremities: no edema SKIN: nonjaundiced Neuro: Confused. Objective Data Vital Signs Vital Signs: Vital Signs - 24 hr 08/14/20 19:45 08/14/20 20:41 08/14/20 22:16 Temperature Pulse Rate 94 114 H 130 H Respiratory Rate 18 20 17 Blood Pressure 116/79 117/59 L 156/89 H Pulse Oximetry 100 98 96 08/14/20 22:27 08/14/20 23:00 08/15/20 01:31 Temperature 98.6 F Pulse Rate 138 H 140 H 124 H Respiratory Rate 22 H 23 H Blood Pressure 156/89 H 146/89 H Pulse Oximetry 94 98 08/15/20 02:00 08/15/20 03:00 08/15/20 04:00 Temperature 98.2 F Pulse Rate 134 H 158 H 121 H Respiratory Rate 19 Blood Pressure 153/78 H 160/77 H Pulse Oximetry 96 08/15/20 04:30 08/15/20 05:05 08/15/20 05:45 Temperature Pulse Rate 132 H 122 H 132 H Respiratory Rate Blood Pressure 170/100 H 166/96 H Pulse Oximetry 08/15/20 08:00 08/15/20 08:19 08/15/20 10:00 Temperature 97.9 F Pulse Rate 94 96 92 Respiratory Rate 12 Blood Pressure 145/76 H 145/76 H Pulse Oximetry 97 08/15/20 10:10 08/15/20 11:17 08/15/20 12:00 Temperature Pulse Rate 85 111 H Respiratory Rate Blood Pressure Pulse Oximetry 97 08/15/20 12:17 08/15/20 14:00 08/15/20 16:00 Temperature 97.2 F L Pulse Rate 108 H 83 112 H Respiratory Rate 28 H Blood Pressure 124/88 Pulse Oximetry 97 08/15/20 16:14 Temperature 97.6 F Pulse Rate 96 Respiratory Rate 24 H Blood Pressure 136/81 Pulse Oximetry 97 Intake/
[2020-08-16] VITALS (12 sets, daily range): BP systolic 126–152; BP diastolic 67–96; PULSE 74–124; RESP 16–22; TEMP 36–36.8; O2SAT 91–97
[2020-08-16] MEDS: METOPROLOL TARTRATE 25 MG TABLET PO ×3 (05:40→19:01)
[2020-08-16] MEDS: POTASSIUM CHLORIDE 10 MEQ TABLET.ER PO (09:11)
[2020-08-16] MEDS: SERTRALINE HCL 50 MG TABLET PO (09:11)
[2020-08-16] MEDS: SIMVASTATIN 10 MG TABLET PO (09:12)
[2020-08-16] MEDS: RALOXIFENE HCL (*CHEMO) 60 MG TABLET PO (09:12)
--- NOTE | 2020-08-16 16:18 | PM.IMPN ---
Progress Note: A&P Assessment and Plan (1) Atrial fibrillation with RVR: Code(s): I48.91 - Unspecified atrial fibrillation Status: Acute Assessment and Plan: 08/16/20 16:18 08/15/20 Patient 85-year-old female was brought by the family patient was having diarrhea and vomiting and quite somnolent upon arrival to emergency depart patient was in atrial fibrillation with RVR rate of 138 and started the patient on diltiazem drip, this morning rate is trending down close to 80-90 will stop diltiazem drip and start the patient home does metoprolol 25 mg q.6 will continue to monitor and further recommendation to follow, patient is quite confused with dementia unable to provide any review of symptoms. 08/16 today patient is slightly more awake complains body ache, patient with a atrial fibrillation with RVR now off diltiazem drip and on metoprolol 25 mg every 6 hours heart rate is trending it may take couple of days for metoprolol to reach therapeutic left as patient had not been taking her medication at home, will continue to monitor, clinically stable will have a PT OT evaluate the patient. (2) Bacteriuria with pyuria: Code(s): R82.71 - Bacteriuria; R82.81 - Pyuria Status: Acute Assessment and Plan: Patient started on Rocephin will follow-up on urine culture and sensitivity Subjective Date/time seen: 08/16/20 16:18 08/15/20 Patient 85-year-old female was brought by the family patient was having diarrhea and vomiting and quite somnolent upon arrival to emergency depart patient was in atrial fibrillation with RVR rate of 138 and started the patient on diltiazem drip, this morning rate is trending down close to 80-90 will stop diltiazem drip and start the patient home does metoprolol 25 mg q.6 will continue to monitor and further recommendation to follow, patient is quite confused with dementia unable to provide any review of symptoms. 08/16 today patient is slightly more awake complains body ache, patient with a atrial fibrillation with RVR now off diltiazem drip and on metoprolol 25 mg every 6 hours heart rate is trending it may take couple of days for metoprolol to reach therapeutic left as patient had not been taking her medication at home, will continue to monitor, clinically stable will have a PT OT evaluate the patient. Review of Systems Review of Systems: ROS unobtainable: Yes unobtainable due to mental status Exam Narrative: Exam Narrative: Patient is comfortable, NAD HEENT: eyes are clear and none icteric LUNGS:CTA HEART: Irregularly irregular ABD: BS+, Soft and nontender Lower extremities: no edema SKIN: nonjaundiced Neuro: Confused. Objective Data Vital Signs Vital Signs: Vital Signs - 24 hr 08/15/20 17:01 08/15/20 18:00 08/15/20 20:00 Temperature 97.8 F Pulse Rate 107 H 103 H 114 H Respiratory Rate 20 Blood Pressure 142/88 H Pulse Oximetry 97 08/15/20 22:00 08/15/20 23:42 08/15/20 23:44 Temperature 97.6 F Pulse Rate 96 111 H 75 Respiratory Rate 18 Blood Pressure 140/70 Pulse Oximetry 96 08/16/20 00:00 08/16/20 02:00 08/16/20 04:00 Temperature 97.6 F Pulse Rate 118 H 98 106 H Respiratory Rate 18 20 Blood Pressure 139/76 Pulse Oximetry 96 96 08/16/20 05:40 08/16/20 06:00 08/16/20 08:00 Temperature 98.2 F Pulse Rate 104 H 121 H 81 Respiratory Rate 22 H Blood Pressure 143/96 H Pulse Oximetry 91 08/16/20 10:00 08/16/20 12:00 08/16/20 14:00 Temperature 97.3 F L Pulse Rate 106 H 124 H 115 H Respiratory Rate 22 H Blood Pressure 152/94 H Pulse Oximetry 97 Intake/Output Intake/Output: Intake & Output 08/13/20 08/14/20 08/15/20 08/16/20 23:59 23:59 23:59 23:59 Intake Total 1600 170 Balance 1600 170 Meds/Results Medications: Active Medications Generic Name Dose Route Start Last Admin Trade Name Radhamesq PRN Reason Stop Dose Admin Acetaminophen 650 mg 08/16/20 18:00 Acetaminophen 325 Mg Tab
[2020-08-16] MEDS: ACETAMINOPHEN 325 MG TABLET 650 MG PO (19:01)
[2020-08-17] VITALS (15 sets, daily range): BP systolic 138–152; BP diastolic 84–98; PULSE 82–127; RESP 14–16; TEMP 36.3–36.7; O2SAT 94–96; BMI 10.0
[2020-08-17] MEDS: METOPROLOL TARTRATE 25 MG TABLET PO ×2 (00:35→05:42)
[2020-08-17] MEDS: ACETAMINOPHEN 325 MG TABLET 650 MG PO ×3 (00:35→12:50)
--- NOTE | 2020-08-17 01:42 | PC.NURSE ---
This patient, Rosy Gregorio, was received from [[facility]] on 08/16/20 at 2020. Patient/family oriented to unit policies and routines
[2020-08-17] MEDS: SERTRALINE HCL 50 MG TABLET PO (08:22)
[2020-08-17] MEDS: RALOXIFENE HCL (*CHEMO) 60 MG TABLET PO (08:22)
[2020-08-17 09:37] LABS: Hematocrit 33.1 % (37.0-47.0); Hemoglobin 8.9 g/dL (12.0-15.0); Mean Corpuscular HGB Conc 26.9 g/dl (32-36); Mean Corpuscular Hemoglobin 19.9 pg (26-34); Mean Corpuscular Volume 73.9 fl (80-100); Platelet Count Result 285 k/mm3 (150-375); Red Blood Count 4.48 M/mm3 (4.2-5.4); White Blood Count 7.6 K/mm3 (4.5-10.0)
[2020-08-17] MEDS: SIMVASTATIN 10 MG TABLET PO (09:51)
[2020-08-17] MEDS: POTASSIUM CHLORIDE 10 MEQ TABLET.ER PO (09:51)
[2020-08-17] MEDS: METOPROLOL TARTRATE 12.5 MG TABLET PO (09:52)
[2020-08-17 10:00] LABS: Anion Gap 9 mmol/L (8-16); Blood Urea Nitrogen 22 mg/dL (7-17); Calcium 8.6 mg/dL (8.4-10.2); Carbon Dioxide 28 mmol/L (22-30); Chloride 107 mmol/L (98-107); Estimated CRCL calculation 29 ml/min; Estimated Glomerular Filt Rate 43; Glucose 156 mg/dL (65-105); Potassium 3.4 mmol/L (3.4-5.0); Sodium 144 mmol/L (137-145)
--- NOTE | 2020-08-17 12:11 | PM.IMPN ---
Progress Note: A&P Assessment and Plan (1) Atrial fibrillation with RVR: Code(s): I48.91 - Unspecified atrial fibrillation Status: Acute Assessment and Plan: 08/17/20 12:11 08/15/20 Patient 85-year-old female was brought by the family patient was having diarrhea and vomiting and quite somnolent upon arrival to emergency depart patient was in atrial fibrillation with RVR rate of 138 and started the patient on diltiazem drip, this morning rate is trending down close to 80-90 will stop diltiazem drip and start the patient home does metoprolol 25 mg q.6 will continue to monitor and further recommendation to follow, patient is quite confused with dementia unable to provide any review of symptoms. 08/16 patient is slightly more awake complains body ache, patient with a atrial fibrillation with RVR now off diltiazem drip and on metoprolol 25 mg every 6 hours heart rate is trending it may take couple of days for metoprolol to reach therapeutic left as patient had not been taking her medication at home, will continue to monitor, clinically stable will have a PT OT evaluate the patient. 08/17 patient is slightly more awake complains body ache, patient with a atrial fibrillation with RVR now off diltiazem drip and on metoprolol 25 mg every 6 hours heart rate is trending it may take couple of days for metoprolol to reach therapeutic left as patient had not been taking her medication at home. However today patient heart rate in 120 will increase metoprolol to 37.5 mg every 6 hours will continue to monitor, will have a PT OT evaluate the and further recommendation to follow. (2) Bacteriuria with pyuria: Code(s): R82.71 - Bacteriuria; R82.81 - Pyuria Status: Acute Assessment and Plan: Patient started on Rocephin will follow-up on urine culture and sensitivity Additional Plan The patient remains in AFib RVR. Will resume the patient's home q.i.d. metoprolol. The patient's Cardizem drip will be increased to 15 mg an hour. Will repeat electrolyte panel in a.m. Patient has bacteriuria with pyuria this could be why the patient was having nausea vomiting diarrhea. Will treat empirically for possible UTI. Urine cultures are pending. 45 minutes spent in critical care activities. This case had a high probability of a clinically significant, sudden, or life threatening deterioration of this patient's condition which required my full and direct attention, intervention and personal management. Patient has been admitted as observation status. Subjective Date/time seen: 08/17/20 12:11 08/15/20 Patient 85-year-old female was brought by the family patient was having diarrhea and vomiting and quite somnolent upon arrival to emergency depart patient was in atrial fibrillation with RVR rate of 138 and started the patient on diltiazem drip, this morning rate is trending down close to 80-90 will stop diltiazem drip and start the patient home does metoprolol 25 mg q.6 will continue to monitor and further recommendation to follow, patient is quite confused with dementia unable to provide any review of symptoms. 08/16 patient is slightly more awake complains body ache, patient with a atrial fibrillation with RVR now off diltiazem drip and on metoprolol 25 mg every 6 hours heart rate is trending it may take couple of days for metoprolol to reach therapeutic left as patient had not been taking her medication at home, will continue to monitor, clinically stable will have a PT OT evaluate the patient. 08/17 patient is slightly more awake complains body ache, patient with a atrial fibrillation with RVR now off diltiazem drip and on metoprolol 25 mg every 6 hours heart rate is trending it may take couple of days for metoprolol to reach therapeutic left as patient had not been taking her medication at home. However today patient heart rate in 120 will increase metoprolol to 37.5 mg every 6 hours will continue to monitor, will have a PT OT evaluate the and
[2020-08-17] MEDS: METOPROLOL TARTRATE TAB 25 MG, METOPROLOL TARTRATE TAB 12.5 MG 37.5 MG PO ×3 (12:50→23:13)
--- NOTE | 2020-08-17 23:53 | PC.NURSE ---
Pt was found actively choking and having significant difficulty clearing airway. Pt was able to cough up large amount of sputum and undigested food. Pt sats 97%, new orders received and pt is now NPO pending swallow evaluation
[2020-08-18] VITALS (12 sets, daily range): BP systolic 120–138; BP diastolic 62–88; PULSE 98–124; RESP 16–20; TEMP 36–36.6; O2SAT 93–97
[2020-08-18] MEDS: ONDANSETRON INJ 4 MG/2 ML VIAL IV PUSH (01:52)
[2020-08-18] MEDS: METOPROLOL TARTRATE INJ 5 MG/5 ML VIAL IV PUSH ×2 (05:26→11:34)
[2020-08-18 08:24] LABS: Anion Gap 5 mmol/L (8-16); Blood Urea Nitrogen 19 mg/dL (7-17); Calcium 8.7 mg/dL (8.4-10.2); Carbon Dioxide 27 mmol/L (22-30); Chloride 107 mmol/L (98-107); Estimated CRCL calculation 35 ml/min; Estimated Glomerular Filt Rate 53; Glucose 112 mg/dL (65-105); Potassium 4.3 mmol/L (3.4-5.0); Sodium 139 mmol/L (137-145)
--- NOTE | 2020-08-18 13:03 | PM.IMPN ---
Progress Note: A&P Assessment and Plan (1) Atrial fibrillation with RVR: Code(s): I48.91 - Unspecified atrial fibrillation Status: Acute Assessment and Plan: 08/18/20 13:03 08/15/20 Patient 85-year-old female was brought by the family patient was having diarrhea and vomiting and quite somnolent upon arrival to emergency depart patient was in atrial fibrillation with RVR rate of 138 and started the patient on diltiazem drip, this morning rate is trending down close to 80-90 will stop diltiazem drip and start the patient home does metoprolol 25 mg q.6 will continue to monitor and further recommendation to follow, patient is quite confused with dementia unable to provide any review of symptoms. 08/16 patient is slightly more awake complains body ache, patient with a atrial fibrillation with RVR now off diltiazem drip and on metoprolol 25 mg every 6 hours heart rate is trending it may take couple of days for metoprolol to reach therapeutic left as patient had not been taking her medication at home, will continue to monitor, clinically stable will have a PT OT evaluate the patient. 08/17 patient is slightly more awake complains body ache, patient with a atrial fibrillation with RVR now off diltiazem drip and on metoprolol 25 mg every 6 hours heart rate is trending it may take couple of days for metoprolol to reach therapeutic left as patient had not been taking her medication at home. However today patient heart rate in 120 will increase metoprolol to 37.5 mg every 6 hours will continue to monitor, will have a PT OT evaluate the and further recommendation to follow. 08/18 on 08/17 patient had 1 episode of vomiting and patient was not able to take p.o. medication and did not receive increased dose metoprolol yesterday and today her heart rate is still high today patient had swallow study and patient is able to take her p.o. medication will start the patient on metoprolol 37.5 mg q.6 will monitor heart rate, fortunately patient still quite somnolent and confused unable to provide any review of symptoms. (2) Bacteriuria with pyuria: Code(s): R82.71 - Bacteriuria; R82.81 - Pyuria Status: Acute Assessment and Plan: Patient started on Rocephin will follow-up on urine culture and sensitivity Additional Plan The patient remains in AFib RVR. Will resume the patient's home q.i.d. metoprolol. The patient's Cardizem drip will be increased to 15 mg an hour. Will repeat electrolyte panel in a.m. Patient has bacteriuria with pyuria this could be why the patient was having nausea vomiting diarrhea. Will treat empirically for possible UTI. Urine cultures are pending. 45 minutes spent in critical care activities. This case had a high probability of a clinically significant, sudden, or life threatening deterioration of this patient's condition which required my full and direct attention, intervention and personal management. Patient has been admitted as observation status. Subjective Date/time seen: 08/18/20 13:03 08/15/20 Patient 85-year-old female was brought by the family patient was having diarrhea and vomiting and quite somnolent upon arrival to emergency depart patient was in atrial fibrillation with RVR rate of 138 and started the patient on diltiazem drip, this morning rate is trending down close to 80-90 will stop diltiazem drip and start the patient home does metoprolol 25 mg q.6 will continue to monitor and further recommendation to follow, patient is quite confused with dementia unable to provide any review of symptoms. 08/16 patient is slightly more awake complains body ache, patient with a atrial fibrillation with RVR now off diltiazem drip and on metoprolol 25 mg every 6 hours heart rate is trending it may take couple of days for metoprolol to reach therapeutic left as patient had not been taking her medication at home, will continue to monitor, clinically stable will have a PT OT evaluate the patient. 08/17 patient
[2020-08-18] MEDS: POTASSIUM CHLORIDE 10 MEQ TABLET.ER PO (13:25)
[2020-08-18] MEDS: RALOXIFENE HCL (*CHEMO) 60 MG TABLET PO (13:26)
[2020-08-18] MEDS: SERTRALINE HCL 50 MG TABLET PO (13:26)
[2020-08-18] MEDS: SIMVASTATIN 10 MG TABLET PO (13:26)
[2020-08-18] MEDS: METOPROLOL TARTRATE TAB 25 MG, METOPROLOL TARTRATE TAB 12.5 MG 37.5 MG PO ×2 (18:53→23:14)
[2020-08-19] VITALS (12 sets, daily range): BP systolic 127–148; BP diastolic 69–88; PULSE 87–128; RESP 16; TEMP 36.2–36.6; O2SAT 96–99
[2020-08-19] MEDS: METOPROLOL TARTRATE TAB 25 MG, METOPROLOL TARTRATE TAB 12.5 MG 37.5 MG PO ×3 (05:50→18:05)
[2020-08-19 06:00] LABS: Anion Gap 10 mmol/L (8-16); Blood Urea Nitrogen 19 mg/dL (7-17); Carbon Dioxide 25 mmol/L (22-30); Chloride 106 mmol/L (98-107); Estimated CRCL calculation 32 ml/min; Estimated Glomerular Filt Rate 47; Glucose 99 mg/dL (65-105); Potassium 4.1 mmol/L (3.4-5.0); Sodium 141 mmol/L (137-145)
[2020-08-19] MEDS: POTASSIUM CHLORIDE 10 MEQ TABLET.ER PO (08:02)
[2020-08-19] MEDS: SERTRALINE HCL 50 MG TABLET PO (08:03)
[2020-08-19] MEDS: SIMVASTATIN 10 MG TABLET PO (08:03)
[2020-08-19] MEDS: RALOXIFENE HCL (*CHEMO) 60 MG TABLET PO (08:03)
--- NOTE | 2020-08-19 11:37 | PM.IMPN ---
Progress Note: A&P Assessment and Plan (1) Atrial fibrillation with RVR: Code(s): I48.91 - Unspecified atrial fibrillation Status: Acute Assessment and Plan: 08/18/20 13:03 08/15/20 Patient 85-year-old female was brought by the family patient was having diarrhea and vomiting and quite somnolent upon arrival to emergency depart patient was in atrial fibrillation with RVR rate of 138 and started the patient on diltiazem drip, this morning rate is trending down close to 80-90 will stop diltiazem drip and start the patient home does metoprolol 25 mg q.6 will continue to monitor and further recommendation to follow, patient is quite confused with dementia unable to provide any review of symptoms. 08/16 patient is slightly more awake complains body ache, patient with a atrial fibrillation with RVR now off diltiazem drip and on metoprolol 25 mg every 6 hours heart rate is trending it may take couple of days for metoprolol to reach therapeutic left as patient had not been taking her medication at home, will continue to monitor, clinically stable will have a PT OT evaluate the patient. 08/17 patient is slightly more awake complains body ache, patient with a atrial fibrillation with RVR now off diltiazem drip and on metoprolol 25 mg every 6 hours heart rate is trending it may take couple of days for metoprolol to reach therapeutic left as patient had not been taking her medication at home. However today patient heart rate in 120 will increase metoprolol to 37.5 mg every 6 hours will continue to monitor, will have a PT OT evaluate the and further recommendation to follow. 08/19/20 11:37 08/18 on 08/17 patient had 1 episode of vomiting and patient was not able to take p.o. medication and did not receive increased dose metoprolol yesterday and today her heart rate is still high today patient had swallow study and patient is able to take her p.o. medication will start the patient on metoprolol 37.5 mg q.6 will monitor heart rate, fortunately patient still quite somnolent and confused unable to provide any review of symptoms. 08/19 patient is still confused unable to provide any review of symptoms however patient is able to take her oral medications and taking metoprolol 37.5 mg every 6 hours her heart rate still above 100, will continue present management and monitor, PT OT evaluate the patient, will benefit going into rehab SNF before returning home. (2) Bacteriuria with pyuria: Code(s): R82.71 - Bacteriuria; R82.81 - Pyuria Status: Acute Assessment and Plan: Patient started on Rocephin will follow-up on urine culture and sensitivity, urine culture is no growth will stop the antibiotic Subjective Date/time seen: 08/19/20 11:37 08/18 on 08/17 patient had 1 episode of vomiting and patient was not able to take p.o. medication and did not receive increased dose metoprolol yesterday and today her heart rate is still high today patient had swallow study and patient is able to take her p.o. medication will start the patient on metoprolol 37.5 mg q.6 will monitor heart rate, fortunately patient still quite somnolent and confused unable to provide any review of symptoms. 08/19 patient is still confused unable to provide any review of symptoms however patient is able to take her oral medications and taking metoprolol 37.5 mg every 6 hours her heart rate still above 100, will continue present management and monitor, PT OT evaluate the patient, will benefit going into rehab SNF before returning home. Review of Systems Review of Systems: ROS unobtainable: Yes unobtainable due to medical condition Exam Narrative: Exam Narrative: Patient is comfortable, NAD HEENT: eyes are clear and none icteric LUNGS:CTA HEART: Irregularly irregular ABD: BS+, Soft and nontender Lower extremities: no edema SKIN: nonjaundiced Neuro: Confused. Objective Data Vital Signs Vital Signs: Vital Signs - 24 hr 08/18/20 12:00 08/18/20 14:00 06
[2020-08-20] VITALS (13 sets, daily range): BP systolic 130–143; BP diastolic 70–87; PULSE 86–115; RESP 16; TEMP 36.3–36.6; O2SAT 95–96
[2020-08-20] MEDS: METOPROLOL TARTRATE TAB 25 MG, METOPROLOL TARTRATE TAB 12.5 MG 37.5 MG PO ×2 (00:26→05:42)
[2020-08-20 06:06] LABS: Anion Gap 9 mmol/L (8-16); Blood Urea Nitrogen 19 mg/dL (7-17); Carbon Dioxide 25 mmol/L (22-30); Chloride 105 mmol/L (98-107); Estimated CRCL calculation 35 ml/min; Estimated Glomerular Filt Rate 53; Glucose 99 mg/dL (65-105); Potassium 4.2 mmol/L (3.4-5.0); Sodium 139 mmol/L (137-145)
[2020-08-20] MEDS: RALOXIFENE HCL (*CHEMO) 60 MG TABLET PO (09:47)
[2020-08-20] MEDS: SERTRALINE HCL 50 MG TABLET PO (09:47)
[2020-08-20] MEDS: POTASSIUM CHLORIDE 10 MEQ TABLET.ER PO (09:47)
[2020-08-20] MEDS: SIMVASTATIN 10 MG TABLET PO (09:48)
--- NOTE | 2020-08-20 11:41 | PM.IMPN ---
Progress Note: A&P Assessment and Plan (1) Atrial fibrillation with RVR: Code(s): I48.91 - Unspecified atrial fibrillation Status: Acute Assessment and Plan: 08/20/20 11:41 08/15/20 Patient 85-year-old female was brought by the family patient was having diarrhea and vomiting and quite somnolent upon arrival to emergency depart patient was in atrial fibrillation with RVR rate of 138 and started the patient on diltiazem drip, this morning rate is trending down close to 80-90 will stop diltiazem drip and start the patient home does metoprolol 25 mg q.6 will continue to monitor and further recommendation to follow, patient is quite confused with dementia unable to provide any review of symptoms. 08/16 patient is slightly more awake complains body ache, patient with a atrial fibrillation with RVR now off diltiazem drip and on metoprolol 25 mg every 6 hours heart rate is trending it may take couple of days for metoprolol to reach therapeutic left as patient had not been taking her medication at home, will continue to monitor, clinically stable will have a PT OT evaluate the patient. 08/17 patient is slightly more awake complains body ache, patient with a atrial fibrillation with RVR now off diltiazem drip and on metoprolol 25 mg every 6 hours heart rate is trending it may take couple of days for metoprolol to reach therapeutic left as patient had not been taking her medication at home. However today patient heart rate in 120 will increase metoprolol to 37.5 mg every 6 hours will continue to monitor, will have a PT OT evaluate the and further recommendation to follow. 08/19/20 11:37 08/18 on 08/17 patient had 1 episode of vomiting and patient was not able to take p.o. medication and did not receive increased dose metoprolol yesterday and today her heart rate is still high today patient had swallow study and patient is able to take her p.o. medication will start the patient on metoprolol 37.5 mg q.6 will monitor heart rate, fortunately patient still quite somnolent and confused unable to provide any review of symptoms. 08/19 patient is still confused unable to provide any review of symptoms however patient is able to take her oral medications and taking metoprolol 37.5 mg every 6 hours her heart rate still above 100, will continue present management and monitor, PT OT evaluate the patient, will benefit going into rehab SNF before returning home. 08/20 today patient is little better states feeling better, unable to provide detailed review of symptom, is able to take her oral medications, patient's heart rate is still persisting above 100, will increase her metoprolol from 37.5 mg every 6 hours to 50 mg every 6 hours, continue to monitor will have a PT OT evaluate the patient and further recommendation to follow. (2) Bacteriuria with pyuria: Code(s): R82.71 - Bacteriuria; R82.81 - Pyuria Status: Acute Assessment and Plan: Patient started on Rocephin will follow-up on urine culture and sensitivity, urine culture is no growth will stop the antibiotic Additional Plan The patient remains in AFib RVR. Will resume the patient's home q.i.d. metoprolol. The patient's Cardizem drip will be increased to 15 mg an hour. Will repeat electrolyte panel in a.m. Patient has bacteriuria with pyuria this could be why the patient was having nausea vomiting diarrhea. Will treat empirically for possible UTI. Urine cultures are pending. 45 minutes spent in critical care activities. This case had a high probability of a clinically significant, sudden, or life threatening deterioration of this patient's condition which required my full and direct attention, intervention and personal management. Patient has been admitted as observation status. Subjective Date/time seen: 08/20/20 11:41 08/15/20 Patient 85-year-old female was brought by the family patient was having diarrhea and vomiting and quite somnolent upon arrival to emergency depart [facility]
[2020-08-20] MEDS: METOPROLOL TARTRATE 50 MG TAB PO ×2 (13:20→17:55)
[2020-08-21] VITALS (12 sets, daily range): BP systolic 126–142; BP diastolic 60–80; PULSE 93–121; RESP 14–20; TEMP 36–36.9; O2SAT 98–99
[2020-08-21] MEDS: METOPROLOL TARTRATE 50 MG TAB PO ×5 (00:10→23:36)
[2020-08-21 06:11] LABS: Anion Gap 7 mmol/L (8-16); Blood Urea Nitrogen 19 mg/dL (7-17); Calcium 8.9 mg/dL (8.4-10.2); Carbon Dioxide 25 mmol/L (22-30); Chloride 108 mmol/L (98-107); Estimated CRCL calculation 32 ml/min; Estimated Glomerular Filt Rate 47; Glucose 95 mg/dL (65-105); Sodium 140 mmol/L (137-145)
[2020-08-21] MEDS: POTASSIUM CHLORIDE 10 MEQ TABLET.ER PO (10:23)
[2020-08-21] MEDS: RALOXIFENE HCL (*CHEMO) 60 MG TABLET PO (10:23)
[2020-08-21] MEDS: SIMVASTATIN 10 MG TABLET PO (10:23)
[2020-08-21] MEDS: SERTRALINE HCL 50 MG TABLET PO (10:23)
--- NOTE | 2020-08-21 12:56 | PM.IMPN ---
Progress Note: A&P Assessment and Plan (1) Atrial fibrillation with RVR: Code(s): I48.91 - Unspecified atrial fibrillation Status: Acute Assessment and Plan: 08/21/20 12:56 08/15/20 Patient 85-year-old female was brought by the family patient was having diarrhea and vomiting and quite somnolent upon arrival to emergency depart patient was in atrial fibrillation with RVR rate of 138 and started the patient on diltiazem drip, this morning rate is trending down close to 80-90 will stop diltiazem drip and start the patient home does metoprolol 25 mg q.6 will continue to monitor and further recommendation to follow, patient is quite confused with dementia unable to provide any review of symptoms. 08/16 patient is slightly more awake complains body ache, patient with a atrial fibrillation with RVR now off diltiazem drip and on metoprolol 25 mg every 6 hours heart rate is trending it may take couple of days for metoprolol to reach therapeutic left as patient had not been taking her medication at home, will continue to monitor, clinically stable will have a PT OT evaluate the patient. 08/17 patient is slightly more awake complains body ache, patient with a atrial fibrillation with RVR now off diltiazem drip and on metoprolol 25 mg every 6 hours heart rate is trending it may take couple of days for metoprolol to reach therapeutic left as patient had not been taking her medication at home. However today patient heart rate in 120 will increase metoprolol to 37.5 mg every 6 hours will continue to monitor, will have a PT OT evaluate the and further recommendation to follow. 08/19/20 11:37 08/18 on 08/17 patient had 1 episode of vomiting and patient was not able to take p.o. medication and did not receive increased dose metoprolol yesterday and today her heart rate is still high today patient had swallow study and patient is able to take her p.o. medication will start the patient on metoprolol 37.5 mg q.6 will monitor heart rate, fortunately patient still quite somnolent and confused unable to provide any review of symptoms. 08/19 patient is still confused unable to provide any review of symptoms however patient is able to take her oral medications and taking metoprolol 37.5 mg every 6 hours her heart rate still above 100, will continue present management and monitor, PT OT evaluate the patient, will benefit going into rehab SNF before returning home. 08/20 today patient is little better states feeling better, unable to provide detailed review of symptom, is able to take her oral medications, patient's heart rate is still persisting above 100, will increase her metoprolol from 37.5 mg every 6 hours to 50 mg every 6 hours, continue to monitor will have a PT OT evaluate the patient and further recommendation to follow. 08/21 patient is now on metoprolol 50 mg every 6 hours heart rate is trending still up and high range, unable to provide detailed review of symptom, discussed with nursing staff patient will benefit going into nursing it seems it will be difficult for her son to manage her, district manager primary care sales is following the pain and further recommendation to follow (2) Bacteriuria with pyuria: Code(s): R82.71 - Bacteriuria; R82.81 - Pyuria Status: Acute Assessment and Plan: Patient started on Rocephin will follow-up on urine culture and sensitivity, urine culture is no growth will stop the antibiotic Additional Plan The patient remains in AFib RVR. Will resume the patient's home q.i.d. metoprolol. The patient's Cardizem drip will be increased to 15 mg an hour. Will repeat electrolyte panel in a.m. Patient has bacteriuria with pyuria this could be why the patient was having nausea vomiting diarrhea. Will treat empirically for possible UTI. Urine cultures are pending. 45 minutes spent in critical care activities. This case had a high probability of a clinically significant, sudden, or life threatening deterioration of this patient's
--- NOTE | 2020-08-21 16:14 | PCSTNOTE ---
Non-chargeable visit. Patient was asleep but did awaken for PETROPHYSICIST however when awake she mainly just looked at PETROPHYSICIST or looked around the room. She imitated an sound x3 before quitting. She did not attempt other swallowing/laryngeal adduction exercises but closed eyes. Opened them when I was leaving but did not further exercises. Will attempt one more time tomorrow before discharging from skilled care.
[2020-08-22] VITALS (12 sets, daily range): BP systolic 112–138; BP diastolic 70–86; PULSE 82–112; RESP 16–20; TEMP 36.1–36.8; O2SAT 97–99; BMI 28.2
[2020-08-22 05:57] LABS: Anion Gap 8 mmol/L (8-16); Blood Urea Nitrogen 22 mg/dL (7-17); Calcium 8.9 mg/dL (8.4-10.2); Carbon Dioxide 26 mmol/L (22-30); Chloride 108 mmol/L (98-107); Estimated CRCL calculation 32 ml/min; Estimated Glomerular Filt Rate 47; Glucose 96 mg/dL (65-105); Potassium 4.1 mmol/L (3.4-5.0); Sodium 142 mmol/L (137-145)
[2020-08-22] MEDS: METOPROLOL TARTRATE 50 MG TAB PO ×3 (06:01→17:43)
[2020-08-22] MEDS: POTASSIUM CHLORIDE 10 MEQ TABLET.ER PO (09:01)
[2020-08-22] MEDS: SERTRALINE HCL 50 MG TABLET PO (09:02)
[2020-08-22] MEDS: SIMVASTATIN 10 MG TABLET PO (09:02)
[2020-08-22] MEDS: RALOXIFENE HCL (*CHEMO) 60 MG TABLET PO (09:02)
--- NOTE | 2020-08-22 10:07 | PM.IMPN ---
Progress Note: A&P Assessment and Plan (1) Atrial fibrillation with RVR: Code(s): I48.91 - Unspecified atrial fibrillation Status: Acute Assessment and Plan: 08/15/20 Patient 85-year-old female was brought by the family patient was having diarrhea and vomiting and quite somnolent upon arrival to emergency depart patient was in atrial fibrillation with RVR rate of 138 and started the patient on diltiazem drip, this morning rate is trending down close to 80-90 will stop diltiazem drip and start the patient home does metoprolol 25 mg q.6 will continue to monitor and further recommendation to follow, patient is quite confused with dementia unable to provide any review of symptoms. 08/16 patient is slightly more awake complains body ache, patient with a atrial fibrillation with RVR now off diltiazem drip and on metoprolol 25 mg every 6 hours heart rate is trending it may take couple of days for metoprolol to reach therapeutic left as patient had not been taking her medication at home, will continue to monitor, clinically stable will have a PT OT evaluate the patient. 08/17 patient is slightly more awake complains body ache, patient with a atrial fibrillation with RVR now off diltiazem drip and on metoprolol 25 mg every 6 hours heart rate is trending it may take couple of days for metoprolol to reach therapeutic left as patient had not been taking her medication at home. However today patient heart rate in 120 will increase metoprolol to 37.5 mg every 6 hours will continue to monitor, will have a PT OT evaluate the and further recommendation to follow. 08/19/20 11:37 08/18 on 08/17 patient had 1 episode of vomiting and patient was not able to take p.o. medication and did not receive increased dose metoprolol yesterday and today her heart rate is still high today patient had swallow study and patient is able to take her p.o. medication will start the patient on metoprolol 37.5 mg q.6 will monitor heart rate, fortunately patient still quite somnolent and confused unable to provide any review of symptoms. 08/19 patient is still confused unable to provide any review of symptoms however patient is able to take her oral medications and taking metoprolol 37.5 mg every 6 hours her heart rate still above 100, will continue present management and monitor, PT OT evaluate the patient, will benefit going into rehab SNF before returning home. 08/20 today patient is little better states feeling better, unable to provide detailed review of symptom, is able to take her oral medications, patient's heart rate is still persisting above 100, will increase her metoprolol from 37.5 mg every 6 hours to 50 mg every 6 hours, continue to monitor will have a PT OT evaluate the patient and further recommendation to follow. 08/21 patient is now on metoprolol 50 mg every 6 hours heart rate is trending still up and high range, unable to provide detailed review of symptom, discussed with nursing staff patient will benefit going into nursing it seems, it will be difficult for her son to manage her, palliative care coordinator is following the pain and further recommendation to follow (2) Bacteriuria with pyuria: Code(s): R82.71 - Bacteriuria; R82.81 - Pyuria Status: Acute Assessment and Plan: Patient started on Rocephin will follow-up on urine culture and sensitivity, urine culture is no growth will stop the antibiotic (3) UTI (urinary tract infection): Qualifiers: Hematuria presence: without hematuria Urinary tract infection type: site unspecified Qualified Code(s): N39.0 - Urinary tract infection, site not specified Code(s): N39.0 - Urinary tract infection, site not specified Status: Acute (4) DVT prophylaxis: Code(s): Z29.9 - Encounter for prophylactic measures, unspecified Status: Acute (5) Diverticulosis: Code(s): K57.90 - Diverticulosis of intestine, part unspecified, without perforation or abscess without bleeding
--- NOTE | 2020-08-22 10:53 | PCSTNOTE ---
Patient underwent a Modified Barium Swallow study on 08/18/20 and a diet and Speech Therapy recommendations were made however over the weeknd and on Friday, patient exhibited poor ability to participate in direct ST tasks. She is discharged at this time due to being unable to actively and appropriately participate in direct ST tasks.
[2020-08-23] VITALS (7 sets, daily range): BP systolic 114; BP diastolic 74; PULSE 84–103; RESP 20; TEMP 36.3; O2SAT 98
[2020-08-23] MEDS: METOPROLOL TARTRATE 50 MG TAB PO ×3 (00:01→12:22)
[2020-08-23 05:36] LABS: Hematocrit 30.6 % (37.0-47.0); Hemoglobin 8.3 g/dL (12.0-15.0); Mean Corpuscular HGB Conc 27.1 g/dl (32-36); Mean Corpuscular Hemoglobin 19.9 pg (26-34); Mean Corpuscular Volume 73.4 fl (80-100); Mean Platelet Volume 11.3 fl (7.4-10.4); Platelet Count Result 236 k/mm3 (150-375); Red Blood Count 4.17 M/mm3 (4.2-5.4); Red Cell Distribution Width 19.2 % (11.5-14.5); White Blood Count 6.8 K/mm3 (4.5-10.0)
[2020-08-23 05:55] LABS: Anion Gap 9 mmol/L (8-16); Blood Urea Nitrogen 20 mg/dL (7-17); Calcium 8.7 mg/dL (8.4-10.2); Carbon Dioxide 24 mmol/L (22-30); Chloride 108 mmol/L (98-107); Estimated CRCL calculation 29 ml/min; Estimated Glomerular Filt Rate 43; Glucose 89 mg/dL (65-105); Potassium 4.1 mmol/L (3.4-5.0); Sodium 141 mmol/L (137-145)
[2020-08-23] MEDS: SIMVASTATIN 10 MG TABLET PO (08:50)
[2020-08-23] MEDS: POTASSIUM CHLORIDE 10 MEQ TABLET.ER PO (08:50)
[2020-08-23] MEDS: RALOXIFENE HCL (*CHEMO) 60 MG TABLET PO (08:50)
[2020-08-23] MEDS: SERTRALINE HCL 50 MG TABLET PO (08:50)
--- NOTE | 2020-08-23 10:25 | PM.DS ---
DS: Admitting Diagnosis Admitting Diagnosis Admitting Diagnosis: afib with rvr DS: Discharge Diagnosis Discharge Diagnosis (1) Bacteriuria with pyuria: Code(s): R82.71 - Bacteriuria; R82.81 - Pyuria Status: Acute (2) Atrial fibrillation with RVR: Code(s): I48.91 - Unspecified atrial fibrillation Status: Acute (3) UTI (urinary tract infection): Qualifiers: Hematuria presence: without hematuria Urinary tract infection type: site unspecified Qualified Code(s): N39.0 - Urinary tract infection, site not specified Code(s): N39.0 - Urinary tract infection, site not specified Status: Acute (4) Chronic kidney disease, stage 3: Code(s): N18.30 - Chronic kidney disease, stage 3 unspecified Status: Chronic (5) Gastroesophageal reflux disease: Code(s): K21.9 - Gastro-esophageal reflux disease without esophagitis Status: Chronic (6) Seizure disorder: Code(s): G40.909 - Epilepsy, unspecified, not intractable, without status epilepticus Status: Chronic (7) Diastolic dysfunction: Code(s): I51.89 - Other ill-defined heart diseases Status: Chronic DS: Summary Hospital Course Hospital Course: Patient 85-year-old female was brought by the family patient was having diarrhea and vomiting and quite somnolent upon arrival to emergency depart patient was in atrial fibrillation with RVR rate of 138 and started the patient on diltiazem drip,subsequently was switched to increased home dose of metoprolol and stopped diltiazem gtt. she also had evidence of UTI and was treated with ceftrixone, urine culture was negative. she finished the course of antibiotics. # afib wth rvr on presentation: now rate controlled # uti: finished the course of antibiotics. 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 she did well with it in the past. 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 he wants to get her home without home health or snf placement. will order CBC, CMP in 1 week. fu with pcp. Status at Discharge Overall status at discharge: patient is progressing back to baseline Time Spent with Patient Time attestation: Total time spent providing and/or coordinating discharge services:45 mins Time spent: Greater than 30 minutes Exam Narrative: Exam Narrative: Patient is comfortable, NAD HEENT: eyes are clear and none icteric LUNGS:CTAB, no respiratory distress HEART: Irregularly irregular, rate controlled ABD: BS+, Soft and nontender Lower extremities: no edema , cyanosis or clubbing SKIN: nonjaundiced Neuro: Confused. alert and awake, follows some commands, left upper extremity with contractures noted, motor and sensory exam could not be done. DS: Data Data Completed and Pending Labs on day of discharge: Labs from last 24 hours 08/23/20 08/23/20 05:08 05:08 WBC 6.8 RBC 4.17 L Hgb 8.3 L Hct 30.6 L MCV 73.4 L MCH 19.9 L MCHC 27.1 L RDW 19.2 H Plt Count 236 MPV 11.3 H Sodium 141 Potassium 4.1 Chloride 108 H Carbon Dioxide 24 Anion Gap 9 BUN 20 H Creatinine 1.20 H Estim Creat Clear Calc 29 Estimated GFR 43 L Glucose 89 Calcium 8.7 Discharge Plan Discharge Attending physician on discharge: Remy
--- NOTE | 2020-08-23 13:20 | PC.NURSE ---
Spoke with Renato, son, via telephone regarding patient's discharge. Educated son and patient that an ambulance will transport patient back to home residence. Son and patient agreeable with discharge. All questions answered.
== END 2020-08-23 13:15 | disposition home or self-care (01) | DRG 309 ==
LOC: ANHED 23:07 → ANHICU 23:54 → ANHIMU 08-15 07:11 → ANH2MED 08-21 09:47 → ANHIMU 08-24 15:52
PROVIDERS: Emergency Medicine; Family Medicine; Admitting Provider Internal Medicine; Emergency Provider Emergency Medicine; PCP Family Medicine; Visit Provider Internal Medicine
DX: I48.20 Chronic atrial fibrillation, unspecified (principal); I69.354 Hemiplegia and hemiparesis following cerebral infarction affecting left non-dominant side; G93.40 Encephalopathy, unspecified; N18.30 Chronic kidney disease, stage 3 unspecified; K21.9 Gastro-esophageal reflux disease without esophagitis; R82.71 Bacteriuria; R82.81 Pyuria; G40.909 Epilepsy, unspecified, not intractable, without status epilepticus; I51.89 Other ill-defined heart diseases; K44.9 Diaphragmatic hernia without obstruction or gangrene; R13.10 Dysphagia, unspecified; K57.90 Diverticulosis of intestine, part unspecified, without perforation or abscess without bleeding; E78.5 Hyperlipidemia, unspecified; D64.9 Anemia, unspecified; R32 Unspecified urinary incontinence; F03.90 Unspecified dementia, unspecified severity, without behavioral disturbance, psychotic disturbance, mood disturbance, and anxiety; Z66 Do not resuscitate; I69.322 Dysarthria following cerebral infarction; Z85.3 Personal history of malignant neoplasm of breast; Z98.42 Cataract extraction status, left eye; Z98.41 Cataract extraction status, right eye; Z87.891 Personal history of nicotine dependence
CPT/HCPCS: 36415; 70450; 71045; 74018; 74176; 80048; 80053; 81001; 83690; 83735; 85025; 85027; 87086; 87088; 92507; 92526; 92611; 93005; 96361; 96365; 96366; 96367; 97161; 97165; 99285; A9270; G0378; J0696; J2405; J3480; J7030